=== PATIENT | male | born 1930 | race Caucasian/White ===

== ENCOUNTER 2017-10-24 03:09 | Emergency (ER) | payer MEDICARE ==
[~2017-10-24] VITALS: Ht 185.4 cm; Wt 87.1 kg
--- OUTSIDE RECORDS SUMMARY | ~2017-10-24 | XMS ---
Demographics + + + | Address | [address] | | | [place] [address] | + + + | Preferred Language | Unknown | + + + | Marital Status | Unknown | + + + | Taoist Affiliation | Unknown | + + + | Race | Unknown | + + + | Ethnic Group | Unknown | + + + Author + + + | Author | [facility] | + + + | Organization | [facility] | + + + | Address | [address] | | | [place] [address] | + + + | Phone | | + + + Care Team Providers + + + + | Care Crm Marketing Manager Name | Role | Phone | + + + + Unavailable | Unavailable | + + + + PROBLEMS +---------+ + + +--------+ + + | Type | Condition | ICD9-CM | [id number] | Onset | Condition | SNOMED | | | | Code | Code | Dates | Status | Code | +---------+ + + +--------+ + + | Problem | Essential | | I10 | | Active | [id number] | | | hypertensi | | | | | | | | on | | | | | | +---------+ + + +--------+ + + | Problem | Vascular | | F01.50 | | Active | 59701643 | | | dementia | | | | | | | | without | | | | | | | | behavioral | | | | | | | | | | | | | | | | disturbanc | | | | | | | | e | | | | | | +---------+ + + +--------+ + + | 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 | 63793564 | | | amine | | | | | | | | deficiency | | | | | | | | (non | | | | | | | | anemic) | | | | | | +---------+ + + +--------+ + + | Problem | Depression | | F32.9 | | Active | 373340050 | +---------+ + + +--------+ + + | Problem | Hyperchole | | E78.0 | | Active | 18221514 | | | sterolemia | | | | | | +---------+ + + +--------+ + + | Problem | Chronic | | Z79.01 | | Active | 317037209 | | | anticoagul | | | | | | | | ation | | | | | | +---------+ + + +--------+ + + | 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 | | Active | 025338499 | | | hyperlipid | | | | | | | | emia | | | | | | +---------+ + + +--------+ + + | Problem | 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 | | Active | 58741177 | | | a | | | | | | +---------+ + + +--------+ + + | Problem | Chronic | | I48.2 | | Active | 320620462 | | | atrial | | | | | | | | fibrillati | | | | | | | | on | | | | | | +---------+ + + +--------+ + + | Problem | Dysthymia | F34.1 | | | Active | 56856572 | +---------+ + + +--------+ + + | Problem | Hypertensi | I11.9 | | | Active | 20345622 | | | ve | | | | | | | | arterioscl | | | | | | | | erotic | | | | | | | | cardiovasc | | | | | | | | ular | | | | | | | | disease | | | | | | +---------+ + + +--------+ + + ALLERGIES Unknown Allergies SOCIAL HISTORY No smoking Hx information available PLAN OF CARE VITAL SIGNS MEDICATIONS Unknown Medications RESULTS No Results PROCEDURES No Known procedures IMMUNIZATIONS No Known Immunizations"
--- OUTSIDE RECORDS SUMMARY | ~2017-10-24 | XMS | Clinical Summary ---
Demographics + + + | Address | [address] | | | [place] [address] | + + + | Home Phone | | + + + | Preferred Language | Unknown | + + + | Marital Status | | + + + | Adventist Affiliation | 1027 | + + + | Race | Unknown | + + + | Ethnic Group | Unknown | + + + Author + + + | Author | [facility] | + + + | Organization | [facility] | + + + | Address | Unknown | + + + | Phone | Unavailable | + + + Support + + + + + | Name | Relationship | Address | Phone | + + + + + | Nancy Tellez | ECON | [address] | | | | | [place] | | | | | [address] | | + + + + + | Tre Tellez | ECON | Unknown | | + + + + + Care Team Providers + +------+ + | Care Assembler Installer General Name | Role | Phone | + +------+ + | Hilton Cummins DO | PP | Unavailable | + +------+ + Allergies No Known Allergies Current Medications + + +--------+---------+------+------+-------+ | Prescription | Sig. | Disp. | Refills | Star | End | Statu | | | | | | t | Date | s | | | | | | Date | | | + + +--------+---------+------+------+-------+ | lisinopril | Take 40 mg by mouth | | | | | Activ | | (PRINIVIL,ZESTRIL) | daily. | | | | | e | | 40 MG tablet | | | | | | | + + +--------+---------+------+------+-------+ | aspirin 81 MG EC | Take 81 mg by mouth | | | | | Activ | | tablet | daily with | | | | | e | | | breakfast. | | | | | | + + +--------+---------+------+------+-------+ | atorvastatin | Take 80 mg by mouth | | | | | Activ | | (LIPITOR) 80 MG | nightly. | | | | | e | | tablet | | | | | | | + + +--------+---------+------+------+-------+ | FLUoxetine | Take 40 mg by mouth | | | | | Activ | | (PROZAC) 40 MG | daily. | | | | | e | | capsule | | | | | | | + + +--------+---------+------+------+-------+ | furosemide (LASIX) | Take 40 mg by mouth | | | | | Activ | | 40 MG tablet | daily. | | | | | e | + + +--------+---------+------+------+-------+ | amLODIPine | Take 5 mg by mouth | | | | | Activ | | (NORVASC) 5 MG | daily. | | | | | e | | tablet | | | | | | | + + +--------+---------+------+------+-------+ | Cholecalciferol | Take 2,000 Units by | | | | | Activ | | (VITAMIN D3) 2000 | mouth daily. | | | | | e | | UNITS capsule | | | | | | | + + +--------+---------+------+------+-------+ | folic acid | Take 400 mcg by | | | | | Activ | | (FOLVITE) 400 MCG | mouth daily. | | | | | e | | tablet | | | | | | | + + +--------+---------+------+------+-------+ | warfarin | Take 1 tablet by | 30 | 11 | 08/2 | 09/0 | Activ | | (COUMADIN) 5 MG | mouth daily. | tablet | | 0/20 | 20 | e | | tablet | | | | 14 | 21 | | + + +--------+---------+------+------+-------+ | cyanocobalamin | Take 500 mcg by | | | | | Activ | | (VITAMIN B-12) 500 | mouth daily. 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 | 10/09/2014 | + + + | CKD (chronic kidney disease), stage III | 11/06/2012 | + + + | HTN (hypertension) | 11/06/2012 | + + + | Nephrolithiasis | 11/06/2012 | + + + | BPH (benign prostatic hypertrophy) | 11/06/2012 | + + + | Vitamin D deficiency | 11/06/2012 | + + + | Anemia | 11/06/2012 | + + + | GERD (gastroesophageal reflux disease) | 11/06/2012 | + + + | Osteoporosis | 11/06/2012 | + + + | Gout | 11/06/2012 | + + + | Dyslipidemia | 11/06/2012 | + + + | CAD (coronary artery disease) | 11/06/2012 | + + + + + | Overview: S/P CABG x1 in ~1979; 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 | | 2003 | + + + +---+ | Hx of sinus bradycardia | | + +---+ | Mitral regurgitation | | + +---+ + + | Overview: mitral valve repair | + + + +---+ | Renal insufficiency | | + +---+ | Hyperlipidemia | | + +---+ Family History + + +------+ + | Medical History | Relation | Name | Comments | + + +------+ + | Heart Disease | Mother | | ACHD | + + +------+ + | Coronary Artery | Paternal | | | | Disease | Grandfath | | | | | er | | | + + +------+ + + +------+ + + | Relation | Name | Status | Comments | + +------+ + + | Father | | | | | | | (Age | | | | | 90) | | + +------+ + + | Mother | | | | | | | (Age | | | | | 84) | | + +------+ + + | Paternal Grandfather | | | | + +------+ + + Social History + +-------+ +--------+------+ | Tobacco Use | Types | Packs/Day | Years | Date | | | | | Used | | + +-------+ +--------+------+ | Never Smoker | | | | | + +-------+ +--------+------+ + +---+---+---+ | Smokeless Tobacco: | | | | | Never Used | | | | + +---+---+---+ + + +---------+ + | Alcohol Use | Drinks/We | oz/Week | Comments | | | ek | | | + + +---------+ + | No | | | | + + +---------+ + + + + | Sex Assigned at | Date Recorded | | | | + + + | Not on file | | + + + Last Filed Vital Signs + + + + | Vital Sign | Reading | Time Taken | + + + + | Blood Pressure | 118/70 | 01/22/2015 11:56 AM PST | + + + + | Pulse | 74 | 01/22/2015 11:56 AM PST | + + + + | Temperature | 36.6 C (97.9 F) | 04/09/2013 12:27 PM PST | + + + + | Respiratory Rate | 18 | 01/22/2015 11:56 AM PST | + + + + | Oxygen Saturation | 98% | 01/22/2015 11:56 AM PST | + + + + | Inhaled Oxygen | - | - | | Concentration | | | + + + + | Weight | 89.8 kg (198 lb) | 01/22/2015 11:56 AM PST | + + + + | Height | 185.4 cm (6' 1") | 01/22/2015 11:56 AM PST | + + + + | Body Mass Index | 26.12 | 01/22/2015 11:56 AM PST | + + + + Plan of Treatment + + + + + | Health Maintenance | Due Date | Last Done | Comments | + + + + + | Vaccine: | | | | | Dtap/Tdap/Td (1 - | 0 | | | | Tdap) | | | | + + + + + | Vaccine: Zoster (1 | | | | | of 2) | 1 | | | + + + + + | Vaccine: | | | | | Pneumococcal 65+ | 6 | | | | Low/Medium Risk (1 | | | | | of 2 - PCV13) | | | | + + + + + | Vaccine: Influenza | | | | | (#1) | 8 | | | + + + + + Results Not on filefrom Last 3 Months Insurance + +--------+ +------+-------+ + | Payer | Benefi | Subscriber | Type | Phone | Address | | | t Plan | ID | | | | | | / | | | | | | | Group | | | | | + +--------+ +------+-------+ + | MEDICARE | MEDICA | [id number] | | | [address] | | | RE | | | | [place] [id number] | | | IP-OP | | | | | + +--------+ +------+-------+ + + +--------+ +--------+ + + | Guarantor Name | Accoun | Relation to | Date | Phone | Billing Address | | | t Type | Patient | of | | | | | | | | | | + +--------+ +--------+ + + | GEOFF TELLEZ | Person | Self [birth year] | Home: | [address] | | | al/Fam | | 1931 | [phone] | [place] | | | [place] | | | [phone] | [phone] | + +--------+ +--------+ + +
--- OUTSIDE RECORDS SUMMARY | ~2017-10-24 | XMS | Clinical Summary ---
Demographics + + + | Address | [address] | | | [place] [address] | + + + | Home Phone | | + + + | Preferred Language | Unknown | + + + | Marital Status | | + + + | Yazidi Affiliation | 1027 | + + + | Race | Unknown | + + + | Ethnic Group | Unknown | + + + Author + + + | Author | [facility] | + + + | Organization | [facility] | + + + | Address | Unknown | + + + | Phone | Unavailable | + + + Support + + + + + | Name | Relationship | Address | Phone | + + + + + | Nancy Tellez | ECON | [address] | | | | | [place] | | | | | [address] | | + + + + + | Tre Tellez | ECON | Unknown | | + + + + + Care Team Providers + +------+ + | Care Sow Farm Manager Name | Role | Phone | [...] | + + + | CAD in cataw[place] artery | 10/09/2014 | + + + [...] +------+-------+ + | MEDICARE | MEDICA | [id number] | | | [address] | | | RE | | | | [place] [id number] | | | IP-OP | | | [...] | Self | [birth year] | Home: | [address] | | | al/Fam | | 1931 | [phone] | [place] | | | [place] | | | [phone] | [phone] | + +--------+ +--------+ + +
--- OUTSIDE RECORDS SUMMARY | ~2017-10-24 | XMS ---
Demographics + + + | Address | [address] | | | [place] [address] | + + + | Preferred Language | Unknown | + + + | Marital Status | Unknown | + + + | Temple Affiliation | Unknown | + + + | Race | Unknown | + + + | Ethnic Group | Unknown | + + + Author + + + | Author | [facility] | + + + | Organization | [facility] | + + + | Address | [address] | | | [place] [address] | + + + | Phone | | + + + Care Team Providers + + + + | Care Paper Coater Name | Role | Phone | + + + + Unavailable | Unavailable | + + + + PROBLEMS + + + + + + + + | Type | Condition | ICD9-CM | [id number] | Onset | Condition | SNOMED | | | | Code | Code | Dates | Status | Code | + + + + + + + + | Problem | Essential | | I10 | | Active | [id number] | | | hypertensi | | | | | | | | on | | | | | | + + + + + + + + | Problem | Vascular | | F01.50 | | Active | 01629326 | | | dementia | | | | | | | | without | | | | | | | | behavioral | | | | | | | | | | | | | | | | disturbanc | | | | | | | | e | | | | | | + + + + + + + + | 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 | 77007642 | | | amine | | | | | | | | deficiency | | | | | | | | (non | | | | | | | | anemic) | | | | | | + + + + + + + + | Problem | Chronic | | Z79.01 | | Active | 705600893 | | | anticoagul | | | | | | | | ation | | | | | | + + + + + + + + | 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 | | Active | 039400266 | | | hyperlipid | | | | | | | | emia | | | | | | + + + + + + + + | Problem | 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 | | Active | 96897594 | | | a | | | | | | + + + + + + + + | Problem | Chronic | | I48.2 | | Active | 078373683 | | | atrial | | | | | | | | fibrillati | | | | | | | | on | | | | | | + + + + + + + + | Problem | Dysthymia | F34.1 | | | Active | 61372778 | + + + + + + + + | Problem | Hypertensi | I11.9 | | | Active | 52059545 | | | ve | | | | | | | | arterioscl | | | | | | | | erotic | | | | | | | | cardiovasc | | | | | | | | ular | | | | | | | | disease | | | | | | + + + + + + + + | Assessment | Vascular | | F01.50 | 22 June, | Active | 74447001 | | | dementia | | | 2016 | | | | | without | | | | | | | | behavioral | | | | | | | | | | | | | | | | disturbanc | | | | | | | | e | | | | | | + + + + + + + + | Assessment | Hemarthros | M25.00 | | 16 June, | Active | 18209658 | | | is | | | 2016 | | | + + + + + + + + | Problem | Depression | | F32.9 | | Active | 606183091 | + + + + + + + + | Assessment | Localized | | R60.0 | 16 June, | Active | 4451914 | | | edema | | | 2017 | | | + + + + + + + + | Problem | Hyperchole | | E78.0 | | Active | 00839272 | | | sterolemia | | | | | | + + + + + + + + ALLERGIES + + + + +--------+ | Substance | Reaction | Event Type | Date | Status | + + + + +--------+ | Metoprolol | bradycardia | Drug Allergy | June, | Active | | Succinate | | | | | + + + + +--------+ SOCIAL HISTORY No smoking Hx information available PLAN OF CARE VITAL SIGNS + + + + | Height | 73 in | 2016-06-22 | + + + + | Weight | 197.0 lbs | 2016-06-22 | + + + + | BMI | 25.99 kg/m2 | 2016-06-22 | + + + + | Heart Rate | 86 /min | 2016-06-22 | + + + + | Blood pressure systolic | 140 mm Hg | 2016-06-22 | + + + + | Blood pressure diastolic | 55 mm Hg | 2016-06-22 | + + + + MEDICATIONS + + + + +--------+ + +--------+ | Medicati | Instruct | Dosage | Frequenc | Start | End Date | Duration | Status | | on | ions | | y | Date | | | | + + + + +--------+ + +--------+ | Amlodipi | | TAKE ONE | | | | | Active | | ne | | TABLET | | | | | | | Besylate | | BY MOUTH | | | | | | | 5mg | | EVERY | | | | | | | | | DAY | | | | | | + + + + +--------+ + +--------+ | Vitamin | Orally | 1 tablet | 24h | | | | Active | | C 1000 | Once a | | | | | | | | MG | day | | | | | | | + + + + +--------+ + +--------+ | Vitamin | | | | | | | Active | | D3 2000 | | | | | | | | | UNIT | | | | | | | | + + + + +--------+ + +--------+ | Warfarin | Orally | 2.5 mg | 24h | | | 90 days | Active | | Sodium | Once a | mon,weds | | | | | | | 2.5 MG | day | ,fri. | | | | | | | | | 1/2 | | | | | | | | | tablet | | | | | | | | | all | | | | | | | | | other | | | | | | | | | days | | | | | | + + + + +--------+ + +--------+ | Aspir-81 | Orally | 1 tablet | 24h | | | | Active | | 81 MG | Once a | | | | | | | | | day | | | | | | | + + + + +--------+ + +--------+ | Vitamin | Sublingu | 1 tablet | 24h | | | | Active | | B-12 | al Once | under | | | | | | | 1000 MCG | a day | the | | | | | | | | | tongue | | | | | | | | | and | | | | | | | | | allow to | | | | | | | | | | | | | | | | | | dissolve | | | | | | + + + + +--------+ + +--------+ | Atorvast | | TAKE ONE | | | | | Active | | atin | | TABLET | | | | | | | Calcium | | BY MOUTH | | | | | | | 80mg | | EVERY | | | | | | | | | DAY | | | | | | + + + + +--------+ + +--------+ | Fluoxeti | Orally | TAKE ONE | 24h | | | | Active | | ne HCl | Once a | CAPSULE | | | | | | | 40mg | day | BY | | | | | | | | | MOUTH | | | | | | | | | EVERY | | | | | | | | | DAY | | | | | | + + + + +--------+ + +--------+ | Folic | Orally | 2 tablet | 24h | | | | Active | | Acid 400 | Once a | | | | | | | | MCG | day | | | | | | | + + + + +--------+ + +--------+ | Furosemi | | TAKE ONE | | | | | Active | | de 40mg | | TABLET | | | | | | | | | BY MOUTH | | | | | | | | | EVERY | | | | | | | | | DAY | | | | | | + + + + +--------+ + +--------+ | Lisinopr | Orally | 1 tablet | 24h | | | | Active | | il 40mg | Once a | | | | | | | | | day | | | | | | | + + + + +--------+ + +--------+ RESULTS No Results PROCEDURES + + + + + | Procedure | Date Ordered | Related Diagnosis | Body Site | + + + + + | Moderate | June 22, 2016 | | | + + + + + IMMUNIZATIONS No Known Immunizations"
--- OUTSIDE RECORDS SUMMARY | ~2017-10-24 | XMS ---
Demographics + + + | Address | [address] | | | [place] [address] | + + + | Preferred Language | Unknown | + + + | Marital Status | Unknown | + + + | Yarsanism Affiliation | Unknown | + + + | Race | Unknown | + + + | Ethnic Group | Unknown | + + + Author + + + | Author | [facility] | + + + | Organization | [facility] | + + + | Address | [address] | | | [place] [address] | + + + | Phone | | + + + Care Team Providers + + + + | Care Elementary Education Tutor Name | Role | Phone | + + + + Unavailable | Unavailable | + + + + PROBLEMS +---------+ + + +--------+ + + | Type | Condition | ICD9-CM | [id number] | Onset | Condition | SNOMED | | | | Code | Code | Dates | Status | Code | +---------+ + + +--------+ + + | Problem | Essential | | I10 | | Active | 95918637 | | | hypertensi | | | | | | | | on | | | | | | +---------+ + + +--------+ + + | Problem | Vascular | | F01.50 | | Active | 88113733 | | | dementia | | | [...] | E53.8 | | | Active | 71002066 | | | amine | | | | | | | | deficiency | | | | | | | | (non | | | | | | | | anemic) | | | | | | +---------+ + + +--------+ + + | Problem | Depression | | F32.9 | | Active | 249215394 | +---------+ + + +--------+ + + | Problem | Hyperchole | | E78.0 | | Active | 82771330 | | | sterolemia | | | | | | +---------+ + + +--------+ + + | Problem | Chronic | | Z79.01 | | Active | 456248838 | | | anticoagul | | | | | | | | ation | | | | | | +---------+ + + +--------+ + + | 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 | | Active | 429385238 | | | hyperlipid | | | | | | | | emia | | | | | | +---------+ + + +--------+ + + | Problem | 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 | | Active | 19685620 | | | a | | | | | | +---------+ + + +--------+ + + | Problem | Chronic | | I48.2 | | Active | 915709932 | | | atrial | | | | | | | | fibrillati | | | | | | | | on | | | | | | +---------+ + + +--------+ + + | Problem | Dysthymia | F34.1 | | | Active | 46879134 | +---------+ + + +--------+ + + | Problem | Hypertensi | I11.9 | | | Active | 31609662 | | | ve | | | | | | | | arterioscl | | | | | | | | erotic | | | | | | | | cardiovasc | | | | | | | | ular | | | | | | | | disease | | | | | | +---------+ + + +--------+ + + ALLERGIES + + + + +--------+ | Substance | Reaction | Event Type | Date | Status | + + + + +--------+ | Metoprolol | bradycardia | Drug Allergy | 15 Sep, 2016 | Active | | Succinate | | | | | + + + + +--------+ SOCIAL HISTORY No smoking Hx information available PLAN OF CARE + +---------+ | Activity | Details | + +---------+ +---+ | | +---+ + + + | Follow Up | 6 Months Reason:null | + + + VITAL SIGNS + + + + | Height | 73 in | 2016-09-21 | + + + + | Weight | 198.6 lbs | 2016-09-21 | + + + + | BMI | 26.20 kg/m2 | 2016-09-21 | + + + + | Temperature | 97.9 degrees Fahrenheit | 2016-09-21 | + + + + | Heart Rate | 64 /min | 2016-09-21 | + + + + | Blood pressure systolic | 146 mm Hg | 2016-09-21 | + + + + | Blood pressure diastolic | 53 mm Hg | 2016-09-21 | + + + + MEDICATIONS + [...] | + + + + + | Office Visit, Est | Sep 21, 2016 | | | | Pt., Level 4 | | | | + + + + + IMMUNIZATIONS No Known Immunizations"
--- OUTSIDE RECORDS SUMMARY | ~2017-10-24 | XMS ---
Demographics + + + | Address | [address] | | | [place] [address] | + + + | Preferred Language | Unknown | + + + | Marital Status | Unknown | + + + | Church Affiliation | Unknown | + + + | Race | Unknown | + + + | Ethnic Group | Unknown | + + + Author + + + | Author | [facility] | + + + | Organization | [facility] | + + + | Address | [address] | | | [place] [address] | + + + | Phone | | + + + Care Team Providers + + + + | Care Business Office Representative Name | Role | Phone | + + + + Unavailable | Unavailable | + + + + PROBLEMS +---------+ + + +--------+ + + | Type | Condition | ICD9-CM | [id number] | Onset | Condition | SNOMED | | | | Code | Code | Dates | Status | Code | +---------+ + + +--------+ + + | Problem | Essential | | I10 | | Active | [id number] | | | hypertensi | | | | | | | | on | | | | | | +---------+ + + +--------+ + + | Problem | Vascular | | F01.50 | | Active | 19089470 | | | dementia | | | [...] | E53.8 | | | Active | 29553997 | | | amine | | | | | | | | deficiency | | | | | | | | (non | | | | | | | | anemic) | | | | | | +---------+ + + +--------+ + + | Problem | Depression | | F32.9 | | Active | 077512156 | +---------+ + + +--------+ + + | Problem | Hyperchole | | E78.0 | | Active | 65539044 | | | sterolemia | | | | | | +---------+ + + +--------+ + + | Problem | Chronic | | Z79.01 | | Active | 891130555 | | | anticoagul | | | | | | | | ation | | | | | | +---------+ + + +--------+ + + | 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
--- OUTSIDE RECORDS SUMMARY | ~2017-10-24 | XMS ---
Demographics + + + | Address | [address] | | | [place] [address] | + + + | Preferred Language | Unknown | + + + | Marital Status | Unknown | + + + | Synagogue Affiliation | Unknown | + + + | Race | Unknown | + + + | Ethnic Group | Unknown | + + + Author + + + | Author | [facility] | + + + | Organization | [facility] | + + + | Address | [address] | | | [place] [address] | + + + | Phone | | + + + Care Team Providers + + + + | Care Manager Media Relations Name | Role | Phone | + + + + Unavailable | Unavailable | + + + + PROBLEMS +---------+ + + +--------+ + + | Type | Condition | ICD9-CM | [id number] | Onset | Condition | SNOMED | | | | Code | Code | Dates | Status | Code | +---------+ + + +--------+ + + | Problem | Essential | | I10 | | Active | 45635629 | | | hypertensi | | | | | | | | on | | | | | | +---------+ + + +--------+ + + | Problem | Vascular | | F01.50 | | Active | [id number] | | | dementia | | | | | 7926025 | | | without | | | | | | | | behavioral | | | | | | | | | | | | | | | | disturbanc | | | | | | | | e | | | | | | +---------+ + + +--------+ + + | 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 | | | | | | | | (non | | | | | | | | anemic) | | | | | | +---------+ + + +--------+ + + | Problem | Depression | | F32.9 | | Active | 48492196 | +---------+ + + +--------+ + + | Problem | Hyperchole | | E78.0 | | Active | 96435567 | | | sterolemia | | | | | | +---------+ + + +--------+ + + | Problem | Chronic | | Z79.01 | | Active | 699025188 | | | anticoagul | | | | | | | | ation | | | | | | +---------+ + + +--------+ + + | 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 | | Active | 641172129 | | | hyperlipid | | | | | | | | emia | | | | | | +---------+ + + +--------+ + + | Problem | 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 | | Active | 02472369 | | | a | | | | | | +---------+ + + +--------+ + + | Problem | Chronic | | I48.2 | | Active | 695690182 | | | atrial | | | | | | | | fibrillati | | | | | | | | on | | | | | | +---------+ + + +--------+ + + | Problem | Dysthymia | F34.1 | | | Active | 94023507 | +---------+ + + +--------+ + + | Problem | Hypertensi | I11.9 | | | Active | 11512513 | | | ve | | | | | | | | arterioscl | | | | | | | | erotic | | | | | | | | cardiovasc | | | | | | | | ular | | | | | | | | disease | | | | | | +---------+ + + +--------+ + + ALLERGIES No Information SOCIAL HISTORY Never Assessed PLAN OF CARE VITAL SIGNS MEDICATIONS Unknown Medications RESULTS No Results PROCEDURES No Known procedures IMMUNIZATIONS No Known Immunizations MEDICAL (GENERAL) HISTORY + + + + | Type | Description | Date | + + + + | Medical History | Arthritis | | + + + + | Medical History | Hypertension | | + + + + | Medical History | Chronic Kidney Disease | | | | stage III Bun/Cr 28/02. | | | | GFR 33 09/14/12 | | + + + + | Medical History | BPH | | + + + + | Medical History | GERD | | + + + + | Medical History | Osteoporosis ( alendronate | | | | started 07/17/12) | | + + + + | Medical History | Depression | | + + + + | Medical History | Gout | | + + + + | Medical History | Vitamin D deficiency | | + + + + | Medical History | Hypercholestrol | | + + + + | Medical History | Peripheral Vascular disease | | + + + + | Medical History | CAD | | + + + + | Medical History | hx/o asymptomatic | | | | bradycardia | | + + + + | Medical History | Anemia H&H .2 09/14/12 | | + + + + | Medical History | Hearing Loss b/l | | + + + + | Medical History | Cognitive Impairment | | | | starting 2012 | | + + + + | Medical History | Atrial Fibrillation started | | | | on coumadin 09/26/13 | | + + + + | Medical History | Estimated dietary calcium | | | | intake 500mg/day 07/17/12 | | + + + + | Medical History | FRAX calculation performed | | | | assessing 10 year | | | | probability of fracture. | | | | 12% risk of major | | | | osteoporotic fx, 5.4% risk | | | | of hip fx. 07/17/12 | | + + + + | Medical History | Patient education packet on | | | | fall prevention and home | | | | safety questionnaire | | | | provided. 07/17/12 | | + + + + | Medical History | MMSE score /02/20/14 | | + + + + | Surgical History | Silk Screen Printer Helper Dr Chan | | | | yearly visits | | + + + + | Surgical History | Internal Medicine Dr Rea | | | | Bren Zheng 05/2012 | | + + + + | Surgical History | Mitral Valve repair | 2003 | + + + + | Surgical History | cataract surgery L | | + + + + | Surgical History | CABG x 2 without [facility] | 2003 | + + + + | Surgical History | knee surgery | | + + + + | Surgical History | Colonoscopy x 3 | 2007 | + + + + | Surgical History | DEXA femorral T-score -2.3 | 2010 | + + + + | Surgical History | 2D Echo - aluis with very | 07/06/13 | | | slow ventricular response, | | | | EF 60%, unable to assess | | | | diastolic fxn. | | + + + + | Hospitalization History | [facility] re: dizziness | 01/15/15 | + + + + | Hospitalization History | [facility] re: ARF | 05/29-06/02/16 | + + + + | Hospitalization History | [facility] re: acute b/l | 06/02-06/08/16 | | | hemarthrosis with | | | | deconditioning and | | | | difficulty in ambulation | | + + + +"
--- OUTSIDE RECORDS SUMMARY | ~2017-10-24 | XMS ---
Demographics + + + | Address | [address] | | | [place] [address] | + + + | Preferred Language | Unknown | + + + | Marital Status | Unknown | + + + | Amish Affiliation | Unknown | + + + | Race | Unknown | + + + | Ethnic Group | Unknown | + + + Author + + + | Author | [facility] | + + + | Organization | [facility] | + + + | Address | [address] | | | [place] [address] | + + + | Phone | | + + + Care Team Providers + + + + | Care Leasing Manager Name | Role | Phone | + + + + Unavailable | Unavailable | + + + + PROBLEMS +---------+ + + +--------+ + + | Type | Condition | ICD9-CM | [id number] | Onset | Condition | SNOMED | | | | Code | Code | Dates | Status | Code | +---------+ + + +--------+ + + | Problem | Essential | | I10 | | Active | 64563970 | | | hypertensi | | | | | | | | on | | | | | | +---------+ + + +--------+ + + | Problem | Vascular | | F01.50 | | Active | 72641149 | | | dementia | | | [...] | E53.8 | | | Active | 89906971 | | | amine | | | | | | | | deficiency | | | | | | | | (non | | | | | | | | anemic) | | | | | | +---------+ + + +--------+ + + | Problem | Depression | | F32.9 | | Active | 096527382 | +---------+ + + +--------+ + + | Problem | Hyperchole | | E78.0 | | Active | 12592450 | | | sterolemia | | | | | | +---------+ + + +--------+ + + | Problem | Chronic | | Z79.01 | | Active | 249624772 | | | anticoagul | | | | | | | | ation | | | | | | +---------+ + + +--------+ + + | 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
--- OUTSIDE RECORDS SUMMARY | ~2017-10-24 | XMS ---
Demographics + + + | Address | [address] | | | [place] [address] | + + + | Preferred Language | Unknown | + + + | Marital Status | Unknown | + + + | Islam Affiliation | Unknown | + + + | Race | Unknown | + + + | Ethnic Group | Unknown | + + + Author + + + | Author | [facility] | + + + | Organization | [facility] | + + + | Address | [address] | | | [place] [address] | + + + | Phone | | + + + Care Team Providers + + + + | Care Missing Persons Investigator Name | Role | Phone | + + + + Unavailable | Unavailable | + + + + PROBLEMS +---------+ + + +--------+ + + | Type | Condition | ICD9-CM | [id number] | Onset | Condition | SNOMED | | | | Code | Code | Dates | Status | Code | +---------+ + + +--------+ + + | Problem | Essential | | I10 | | Active | 84539516 | | | hypertensi | | | | | | | | on | | | | | | +---------+ + + +--------+ + + | Problem | Vascular | | F01.50 | | Active | 56454951 | | | dementia | | | [...] | E53.8 | | | Active | 41991111 | | | amine | | | | | | | | deficiency | | | | | | | | (non | | | | | | | | anemic) | | | | | | +---------+ + + +--------+ + + | Problem | Depression | | F32.9 | | Active | 219194560 | +---------+ + + +--------+ + + | Problem | Hyperchole | | E78.0 | | Active | 75573112 | | | sterolemia | | | | | | +---------+ + + +--------+ + + | Problem | Chronic | | Z79.01 | | Active | 923781857 | | | anticoagul | | | | | | | | ation | | | | | | +---------+ + + +--------+ + + | 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
--- OUTSIDE RECORDS SUMMARY | ~2017-10-24 | XMS ---
Demographics + + + | Address | [address] | | | [place] [address] | + + + | Preferred Language | Unknown | + + + | Marital Status | Unknown | + + + | Zoroastrianism Affiliation | Unknown | + + + | Race | Unknown | + + + | Ethnic Group | Unknown | + + + Author + + + | Author | [facility] | + + + | Organization | [facility] | + + + | Address | [address] | | | [place] [address] | + + + | Phone | | + + + Care Team Providers + + + + | Care Career Information Specialist Name | Role | Phone | + + + + Unavailable | Unavailable | + + + + PROBLEMS + + + + + + + + | Type | Condition | ICD9-CM | [id number] | Onset | Condition | SNOMED | | | | Code | Code | Dates | Status | Code | + + + + + + + + | Problem | Essential | | I10 | | Active | 56738859 | | | hypertensi | | | | | | | | on | | | | | | + + + + + + + + | Problem | Vascular | | F01.50 | | Active | 63961897 | | | dementia | | | [...] | E53.8 | | | Active | 61331745 | | | amine | | | | | | | | deficiency | | | | | | | | (non | | | | | | | | anemic) | | | | | | + + + + + + + + | Assessment | Contusion | | S80.01XD | 20 Apr, | Active | [id number] | | | of right | | | 2017 | | 5563272 | | | knee, | | | | | | | | subsequent | | | | | | | | encounter | | | | | | + + + + + + + + | Problem | Depression | | F32.9 | | Active | 085162448 | + + + + + + + + | Problem | Hyperchole | | E78.0 | | Active | 46110520 | | | sterolemia | | | | | | + + + + + + + + | Problem | Chronic | | Z79.01 | | Active | 693708953 | | | anticoagul | | | | | | | | ation | | | | | | + + + + + + + + | 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 | | Active | 268634528 | | | hyperlipid | | | | | | | | emia | | | | | | + + + + + + + + | Problem | 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 | | Active | 81272545 | | | a | | | | | | + + + + + + + + | Problem | Chronic | | I48.2 | | Active | 256080057 | | | atrial | | | | | | | | fibrillati | | | | | | | | on | | | | | | + + + + + + + + | Problem | Dysthymia | F34.1 | | | Active | 01394288 | + + + + + + + + | Problem | Hypertensi | I11.9 | | | Active | 54500605 | | | ve | | | [...] Metoprolol | bradycardia | Drug Allergy | May, | Active | | Succinate | | | | | + + + + +--------+ SOCIAL HISTORY No smoking Hx information available PLAN OF CARE VITAL SIGNS + + + + | Height | 73 in | 2016-05-27 | + + + + | Weight | 197.0 lbs | 2016-05-27 | + + + + | BMI | 25.99 kg/m2 | 2016-05-27 | + + + + | Heart Rate | 95 /min | 2016-05-27 | + + + + | Blood pressure systolic | 141 mm Hg | 2016-05-27 | + + + + | Blood pressure diastolic | 55 mm Hg | 2016-05-27 | + + + + MEDICATIONS + + + + +--------+ + +--------+ | Medicati | Instruct | Dosage | Frequenc | Start | End Date | Duration | Status | | on | ions | | y | Date | | | | + + + + +--------+ + +--------+ | Atorvast | | TAKE ONE | | | | 90 | Active | | atin | | [...] | + + + + + | Est Level III | May 27, 2016 | | | | Intermediate | | | | + + + + + IMMUNIZATIONS No Known Immunizations"
--- OUTSIDE RECORDS SUMMARY | ~2017-10-24 | XMS ---
Demographics + + + | Address | [address] | | | [place] [address] | + + + | Preferred Language | Unknown | + + + | Marital Status | Unknown | + + + | Restoration Affiliation | Unknown | + + + | Race | Unknown | + + + | Ethnic Group | Unknown | + + + Author + + + | Author | [facility] | + + + | Organization | [facility] | + + + | Address | [address] | | | [place] [address] | + + + | Phone | | + + + Care Team Providers + + + + | Care Signal Circuit Designer Name | Role | Phone | + + + + Unavailable | Unavailable | + + + + PROBLEMS +---------+ + + +--------+ + + | Type | Condition | ICD9-CM | GKK60-MB | Onset | Condition | SNOMED | | | | Code | Code | Dates | Status | Code | +---------+ + + +--------+ + + | Problem | Essential | | I10 | | Active | 14161725 | | | hypertensi | | | | | | | | on | | | | | | +---------+ + + +--------+ + + | Problem | Vascular | | F01.50 | | Active | 70756937 | | | dementia | | | [...] | E53.8 | | | Active | 26885858 | | | amine | | | | | | | | deficiency | | | | | | | | (non | | | | | | | | anemic) | | | | | | +---------+ + + +--------+ + + | Problem | Depression | | F32.9 | | Active | 622735141 | +---------+ + + +--------+ + + | Problem | Hyperchole | | E78.0 | | Active | 84837845 | | | sterolemia | | | | | | +---------+ + + +--------+ + + | Problem | Chronic | | Z79.01 | | Active | 697894764 | | | anticoagul | | | | | | | | ation | | | | | | +---------+ + + +--------+ + + | 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
[~2017-10-24 03:09] MED LIST: AMLODIPINE BESYL5 MG PO; ASPIRIN EC81 MG PO; COUMADIN2.5 MG PO; FLUOXETINE HCL40 MG PO; FOLIC ACID0.4 MG; FOSAMAX70 MG PO; FUROSEMIDE40 MG PO; LIPITOR80 MG PO; LISINOPRIL40 MG PO; METOPROLOL SUCC25 MG; METOPROLOL SUCC50 MG PO; OXYCODONE HCL5 MG PO; VITAMIN D32000 UNIT PO; WARFARIN SODIU2.5 MG PO; WARFARIN SODIUM5 MG PO
--- NOTE | 2017-10-24 07:34 | EKG ---
[facility] [address] [place] [address] Signed Atrial fibrillation with slow ventricular response Septal infarct , age undetermined Abnormal ECG When compared with ECG of 26-MAY-2016 00:17, Previous ECG has undetermined rhythm, needs review Septal infarct is now present T wave inversion less evident in Anterolateral leads Confirmed by MINE TAYLOR MD ([id number]) on 10/24/2017 7:34:44 AM Electronically Signed By: MINE TAYLOR MD 10/24/17 0734 PATIENT NAME: GEOFF TELLEZ Electrocardiogram DATE OF : 30 PHYSICIAN: MINE TAYLOR MD REPORT #: [id number] REPORT IS CONFIDENTIAL AND NOT TO BE RELEASED WITHOUT AUTHORIZATION
== END 2017-10-24 06:49 | disposition home or self-care (01) ==
LOC: ED 03:09
DX: R53.1 Weakness (principal); F03.90 Unspecified dementia, unspecified severity, without behavioral disturbance, psychotic disturbance, mood disturbance, and anxiety; I10 Essential (primary) hypertension; Z79.899 Other long term (current) drug therapy; Z79.82 Long term (current) use of aspirin
CPT/HCPCS: 80053; 81001; 84484; 85025; 85610; 93005; 93010; 99284; J7030

== ENCOUNTER 2018-05-11 18:54 | Inpatient (IN) | payer MEDICARE ==
[~2018-05-11] VITALS: Ht 185.4 cm; Wt 90.1 kg
--- OUTSIDE RECORDS SUMMARY | ~2018-05-11 | XMS | Clinical Summary ---
Demographics + + + | Address | [address] | | | [place] [address] | + + + | Home Phone | | + + + | Preferred Language | Unknown | + + + | Marital Status | | + + + | Buddhism Affiliation | 1027 | + + + | Race | Unknown | + + + | Ethnic Group | Unknown | + + + Author + + + | Author | [facility] | + + + | Organization | [facility] | + + + | Address | Unknown | + + + | Phone | Unavailable | + + + Support + + + + + | Name | Relationship | Address | Phone | + + + + + | Nancy Tellez | ECON | [address] | | | | | [place] | | | | | [address] | | + + + + + | Tre Tellez | ECON | Unknown | | + + + + + Care Team Providers + +------+ + | Care First Front Ventilator Name | Role | Phone | + [...] | + + + | CAD in [place] artery | 10/09/2014 | + + + [...] +------+-------+ + | MEDICARE | MEDICA | [id number] | | | [address] | | | RE | | | | [place] [address] | | | IP-OP | | | [...] | Self | [birth year] | Home: | [address] | | | al/Fam | | 1931 | [phone] | [place] | | | [place] | | | [phone] | [address] | + +--------+ +--------+ + +
--- OUTSIDE RECORDS SUMMARY | ~2018-05-11 | XMS | Clinical Summary ---
Demographics + + + | Address | [address] | | | [place] [address] | + + + | Home Phone | | + + + | Preferred Language | Unknown | + + + | Marital Status | | + + + | Holiness Affiliation | 1027 | + + + | Race | Unknown | + + + | Ethnic Group | Unknown | + + + Author + + + | Author | [facility] | + + + | Organization | [facility] | + + + | Address | Unknown | + + + | Phone | Unavailable | + + + Support + + + + + | Name | Relationship | Address | Phone | + + + + + | Nancy Tellez | ECON | [address] | | | | | [place] | | | | | [address] | | + + + + + | Tre Tellez | ECON | Unknown | | + + + + + Care Team Providers + +------+ + | Care Telegraph Printer Mechanic Name | Role | Phone | + [...] | + + + | CAD in [place] artery | 10/09/2014 | + + + [...] +------+-------+ + | MEDICARE | MEDICA | [id number] | | | [address] | | | RE | | | | [place] [address] | | | IP-OP | | | [...] | Self | [birth year] | Home: | [address] | | | al/Fam | | 1931 | [phone] | [place] | | | [place] | | | [phone] | [address] | + +--------+ +--------+ + +
--- OUTSIDE RECORDS SUMMARY | ~2018-05-11 | XMS | Clinical Summary ---
Demographics + + + | Address | [address] | | | [place] [address] | + + + | Home Phone | | + + + | Preferred Language | Unknown | + + + | Marital Status | | + + + | Bahai Affiliation | 1027 | + + + | Race | Unknown | + + + | Ethnic Group | Unknown | + + + Author + + + | Author | [facility] | + + + | Organization | [email or web address] | + + + | Address | Unknown | + + + | Phone | Unavailable | + + + Support + + + + + | Name | Relationship | Address | Phone | + + + + + | Nancy Tellez | ECON | [address] | | | | | [place] | | | | | [address] | | + + + + + | Tre Tellez | ECON | Unknown | | + + + + + Care Team Providers + +------+ + | Care Chief Program Officer Name | Role | Phone | + [...] | + + + | CAD in [place] artery | 10/09/2014 | + + + [...] +------+-------+ + | MEDICARE | MEDICA | [id number] | | | [address] | | | RE | | | | [place] [address] | | | IP-OP | | | [...] | Self | [birth year] | Home: | [address] | | | al/Fam | | 1931 | [phone] | [place] | | | [place] | | | [phone] | [address] | + +--------+ +--------+ + +
[~2018-05-11 18:54] MED LIST changes: -FOLIC ACID0.4 MG; +FOLIC ACID0.4 MG PO
[2018-05-11] MEDS ORDERED: LOSARTAN POTAS100 MG PO (19:07)
--- NOTE | 2018-05-11 21:55 | NUR ---
Patient arrived to unit via stretcher with LYLA Waters from ED. Patient slid to bed with assistance from LYLA Waters and LYLA Hobbs. With minimal effort from patient during bed transfer, patient is tachypneic with RR >30, SpO2 >90% with 4L O2 via oxymask, reports feeling SOB. RT at bedside to evaluate patient. With rest and relaxation, patient remains tachypneic but states "my breathing feels okay." Patient able to answer admission questions without difficulty. Patient is disoriented to time, orinted to self, place and situation. HR and BP WNL, lungs have EXW throughout. BT active x4, denies N/V. 1+ pitting edema noted in BLE, patient states that minor swelling is normal for him in left leg after CABG. CMS intact, IV intact.
--- NOTE | 2018-05-11 22:27 | NUR ---
RT to room to complete breathing treatment due to continued EXW and tachpnea.
--- NOTE | 2018-05-11 23:00 | NUR ---
Patient placed on BiPAP.
--- NOTE | 2018-05-12 00:30 | NUR ---
Patient is restful with eyes closed, breathing is even and unlabored on BiPAP, SPO2 94% with 30% FiO2. Lungs are clear in left [place], right side of lungs are dim, patient states "my breathing feels much better." denies needs at this time. No acute changes from previous assessment, vitals WNL, IVF infusing per order. call light within reach.
--- NOTE | 2018-05-12 02:40 | NUR ---
Patient restful with eyes closed, breathing is even and unlabored on BiPAP, SpO2 30% FiO2. FLACC score 0, call light within reach, vitals WNL.
--- NOTE | 2018-05-12 04:10 | NUR ---
Updated Dr. Sanders that patient has not voided since arrival to unit, no new orders at this time.
--- NOTE | 2018-05-12 05:01 | NUR ---
Patient continues to be restful with BiPAP, states "my breathing still feels good." Denies needs at this time. No acute changes in assessment. Vitals WNL. Patient taken off of BiPAP per request, placed on 4L O2 via oxymask, SpO2 95%. Call light within reach, IVF infusing per order.
--- NOTE | 2018-05-12 05:50 | NUR ---
Patient placed back on BiPAP, SpO2 96%, breathing remains unlabored. Denies needs at this time. Call light within reach.
--- NOTE | 2018-05-12 07:27 | NUR ---
PHONE CALL RC'D FROM DR. RIVERA REQUESTING BLADDER SCAN. PT SCANNED AND 359 MLS NOTED IN BLADDER. PT DENIES NEED TO URINATE. PHONE CALL TO PROVIDER AND INFORMED OF RESULTS. ORDER RC'D FOR MERINO CATH, READ BACK AND VERIFIED.
--- NOTE | 2018-05-12 08:35 | NUR ---
MERINO CATHETER PLACED AT THIS TIME, PT TOLERATED WELL. DR RIVERA INTO SEE PT SENT URINE SAMPLE TO LAB, FAMILY INTO SEE PT AT THIS TIME, BKF ORDERED FOR PT.
--- NOTE | 2018-05-12 09:15 | NUR ---
RETURNED FROM OR AT THIS TIME. TWO PERSON TRANSFGER.
--- NOTE | 2018-05-12 11:01 | NUR ---
PT WOKED WITH PHYSICAL THERAP AND BECOME INCREASED SOB AND INCREASED WORK OF BREATHING. RT CALLED AND NEB TX STARTED. PT IS HAVING CONTRERAS IN COLOR URINE. FAMILY REMAINS AT THE BEDSIDE.
[2018-05-12] MEDS ORDERED: FLUOXETINE HCL20 MG PO (11:03)
--- NOTE | 2018-05-12 11:40 | NUR ---
PT HAD BEEN WORKING WITH PHYSICAL THEAPY AND HAD INCREASED WORK OF BREATHING RT NOTIFED AND NEB TX GIVEN
--- NOTE | 2018-05-12 11:54 | NUR ---
Waiting for patient's , Nancy, to return to reconcile medications
--- NOTE | 2018-05-12 13:26 | EKG ---
[facility] [address] [place] [address] \T\ T wave abnormality, consider lateral ischemia Abnormal ECG When compared with ECG of 24-OCT-2017 03:13, Vent. rate has increased BY 41 BPM Criteria for Septal infarct are no longer present Confirmed by ANNEMARIE RIVERA DO ([id number]) on 05/12/2018 1:26:19 PM Electronically Signed By: ANNEMARIE RIVERA DO 05/12/18 1326 PATIENT NAME: GEOFF TELLEZ Electrocardiogram DATE OF : 30 PHYSICIAN: ANNEMARIE RIVERA DO REPORT #: [id number] REPORT IS CONFIDENTIAL AND NOT TO BE RELEASED WITHOUT AUTHORIZATION
--- NOTE | 2018-05-12 13:50 | NUR ---
ASSISTED PHYSICAL THERAPY WITH WALKING PT IN THE HALLWAY. PT ABLE TO WALK ABOUT 45 FEET IN THE [place] BEFORE NEEDING TO SIT DOWN. PT MAINTAINED O2 SATS AT 95 % ON OXYGEN, HOWEVER HAD SIGNIFICANT INCREASED WORK OF BREATHING. PT REQUESTED NOT TO APPLY BIPAP AT THIS TIME. PTS PRIMARY NURSE NOTIFIED.
--- NOTE | 2018-05-12 15:24 | NUR ---
IV FLUIDS DECREASED TO 75MLS/HR AT 15:[address] RIVERA ORDERS.
--- NOTE | 2018-05-12 18:28 | NUR ---
PT HAS ATE WELL TODAY, PT IS ABLE TO FEED SELF AND TOLERATE FOOD. FAMILY HAS BEEN AT THE BEDSIDE AND ALL QUESTIONS ANSWERED.
--- NOTE | 2018-05-12 19:37 | NUR ---
Patient sitting up in bed reading book, breathing is even and unlabored, denies feeling SOB. SpO2 95% on 2L NC. Denies needs at this time. Licea in place, draining bloody urine. IVF infusing per order, IV site intact. Call light within reach.
--- NOTE | 2018-05-12 20:50 | NUR ---
Patient assessment done, EXW heard throughout all lung rich[place], patient denies feeling SOB, patient's breathing is even and unlabored, SpO2 95% on 2L O2 NC. Patient repositioned in bed, EXW improved. RT to room to place patient on BiPAP. Patient disoriented to time, aware of person and surroundings, HR and BP WNL, peripheral pulses well felt in all extremities, 1+ pitting edema noted in BLE. Bowel tones active, denies nausea, reports that distention is normal for him. Licea present, oliguria noted with eloisa blood and small blood clots. Multiple bruises noted scattered across body. IV sites intact, LR infusing at 200 cc/hr per order. Denies pain at this time. Call light within reach.
--- NOTE | 2018-05-12 21:00 | NUR ---
Notified Dr. Orellana that patient continues to have oliguria with eloisa blood in hayes. Per Dr. Orellana, patient to remain on 200 cc/hr LR and continue to monitor output. Also received order to flush hayes, hayes flushed with 30 cc sterile NS, hayes not occluded. Patient restful, vitals WNL, denies needs at this time. IV site patent, IVF infusing per order. Call light within reach.
--- NOTE | 2018-05-12 22:15 | NUR ---
Patient restful with eyes closed, vitals WNL, on BiPAP. Licea continues to drain urine with eloisa blood. IVF infusing per order. call light within reach.
--- NOTE | 2018-05-12 23:00 | NUR ---
Patient remains restfuls with BiPAP, vitals WNL. Urine output increasing, remains oliguric however, eloisa blood no longer noted in urine, blood-streaked urine now. FLACC score 0. call light within reach.
--- NOTE | 2018-05-13 00:18 | NUR ---
Assessment done, no acute changes from previous assessment, urine output QS for 0000, minimal blood noted in urine now. Patient denies needs, denies pain. EXW still noted throughout lung [place]. Remains on BiPAP, SpO2 96% with 30% FiO2, IVF infusing per order. call light within reach.
--- NOTE | 2018-05-13 02:00 | NUR ---
Restful with BiPAP, vitals WNL, FLACC 0, hayes draining blood-tinged urine, no eloisa blood noted. Call light within reach, IVF infusing per order.
--- NOTE | 2018-05-13 04:00 | NUR ---
Patient resting comfortably, vitals WNL, remains on BiPAP, hayes draining concentrated urine, no eloisa blood noted. Call light within reach, IVF infusing.
--- NOTE | 2018-05-13 06:17 | NUR ---
Patient restful with eyes closed, denies needs at this time, denies pain. Assessment done, no acute changes from previous assessments, lungs are clear while on BiPAP, EXW when BiPAP is off, patient denies feeling SOB, no apparent respiratory distress. Licea continues to put out concentrated urine, no apparent blood. Call light within reach.
--- NOTE | 2018-05-13 07:48 | NUR ---
PT ASLEEP ON BIPIP (30% FIO2) AT THIS TIME. NO SIGNS OF DISCOMFORT. CALL LIGHT WITHIN REACH AND WILL RETURN SOON FOR ASSESSMENT.
--- NOTE | 2018-05-13 08:15 | NUR ---
PT SITTING UP IN BED AT THIS TIME ON 2 L/MIN O2 VIA NC- RT HAS PLACED HIM ON THIS AFTER SPENDING HIS NIGHT ON BIPAP. ASSESSMENT COMPLETED. PT VERY PLEASANT, CALM AND COOPERATIVE WITH NO C/O PAIN, N/V OR SOB. HE STATES HIS "BREATHING FEELS BETTER." LUNGS ARE VERY COURSE WITH EXPIRATORY WHEEZING IN ALL LUNG LOBES. ENCOURAGED TO KEEP UP WITH HIS COUGHING AND DEEP BREATHING. PT HAS A FREQUENT, HARSH COUGH BUT HE STATES "NOTHING IS COMING UP" IN REGARDS TO ANY SPUTUM. AFIB ON CONTINUOUS TELE; IRREGULAR HEART RATE. PT A/O X3; AVOIDED ANSWERING MY QUESTIONS TO THE DATE. BILATERAL FEET SHOW TRACE EDEMA; NO PITTING. MERINO IN PLACE DRAINING LIGHT YELLOW URINE- WILL CONTINUE TO MONITOR CLOSELY HE'S BEEN OLIGURIC. CONTINUOUS LR RUNNING INTO RIGHT AC PIV WITHOUT ISSUE; LEFT ARM PIV SL. EDUCATION COMPLETED WITH PT- ASKS APPROPRIATE QUESTIONS AND ANSWERS GIVEN. PT REFUSES TO GET UP TO RECLINER AT THIS TIME BUT STATES HE WILL "IN A LITTLE WHILE." BREAKFAST HAS ARRIVED AND PT DENIES ANY NEEDS AT THIS TIME. CALL LIGHT WITHIN REACH. WILL CONTINUE TO MONITOR.
--- NOTE | 2018-05-13 09:05 | NUR ---
PT ASSISTED UP TO HIS RECLINER AT THIS TIME. X1 PA/STAND BY ASSISTANCE. PT DENIES ANY DIZZINESS/FAINTNESS BUT STATES HE "FEELS WEAK" WHEN UP ON HIS FEET. WALKER USED FOR THE FEW STEPS TO THE CHAIR. EDUCATION GIVEN ON IMPORTANCE OF BEING OUT OF BED FOR LUNG EXPANSION. PT HAD SOME TACHYPNEA AND COUGHING WITH HIS AMBULATION TO CHAIR. AUDIBLY WHEEZY ON EXPIRATION. DENIES ANY NEEDS AT THIS TIME. HIS AND ANOTHER FAMILY MEMBER HAS JUST ARRIVED TO VISIT. CALL LIGHT WITHIN REACH. WILL CONTINUE TO MONITOR.
--- NOTE | 2018-05-13 11:15 | NUR ---
PT HAS FINISHED WORKING WITH PT IN HALLWAY- O2 SATS REMAINED >93% ON 2 L/MIN O2 VIA NC DURING AMBULATION. PT THEN HAD A BM IN TOILET. X1 PERSON ASSIST WITH HIS WALKER BACK TO RECLINER. FAMILY REMAINS AT HIS SIDE. DENIES ANY NEEDS. CALL LIGHT WITHIN REACH. WILL CONTINUE TO MONITOR.
--- NOTE | 2018-05-13 11:25 | NUR ---
PT'S MERINO CATH REMOVED WITHOUT ANY COMPLICATION AT THIS TIME. PT'S RIGHT IV ALSO SALINE LOCKED AT THIS TIME. BOTH OF THESE DONE PER MD'S ORDER. ORTHOSTATICS COMPLETED AND ARE NEGATIVE. PT IN RECLINER. DENIES ANY NEEDS. CALL LIGHT WITHIN REACH. WILL CONTINUE TO MONITOR.
--- NOTE | 2018-05-13 11:40 | NUR ---
PT ASSISTED TO TOILET PER HIS REQUEST. PT HAD ANOTHER BM AND NOW BACK IN RECLINER. TESTED PT WITH AMBULATION WITHOUT O2 AND HE DROPPED TO 86% WHEN ON ROOM AIR. PLACED BACK ON 2 L/MIN O2 AND HE IMMEDIATELY WENT UP TO 96%. CALL LIGHT WITHIN REACH. WILL CONTINUE TO MONITOR. PT AWARE OF HIS PLAN TO TRANSFER TO M/S UNIT TODAY. WILL BE TRANSFERING HIM SHORTLY.
--- NOTE | 2018-05-13 12:21 | NUR ---
PT REMAINS UP IN CHAIR. ASSESSMENT COMPLETED. NO CHANGES EXCEPT LUNGS SOUND MUCH BETTER SINCE PT HAS BEEN UP OUT OF BED WELL HIS MEDICAL TREATMENT THROUGHOUT THE MORNING. PT CONTINUES TO DENY PAIN, N/V OR SOB. WILL BE TRANSFERRING TO ROOM 124 SHORTLY.
--- NOTE | 2018-05-13 12:55 | NUR ---
REPORT GIVEN TO RECEIVING LYLA BOLTON; PT TRANSFERED WITH ALL BELONGINGS AND FAMILY AT HIS SIDE TO ROOM 124 ON M/S UNIT AT 1255. TRANSFER COMPLETE.
--- NOTE | 2018-05-13 13:00 | NUR ---
NEW ADMIT TO THE FLOOR. PT AWAKE, ALERT AND ORIENTED X3. PT DENIES SOB AND CHEST PAIN. PT HAS NOTABLE COUGH. RIGHT EYE RED, DR. CHRISTENSEN AWARE. PT IS ON 2L OXYGEN PER NC, RESP EVEN AND NON LABORED. VS TAKEN AND ARE STABLE. ORIENTED PT TO ROOM AND CALL LIGHT. PT TRANSITIONED TO BED, HE STATES HE WOULD LIKE TO TAKE A NAP. AT BEDSIDE. BED ALARM INTACT. INSTRUCTED PT TO USE CALL LIGHT WHEN NEEDING TO GET UP OUT OF BED. PERSONAL SUPPLIES AND CALL LIGHT WITHIN REACH. NO NEEDS.
--- NOTE | 2018-05-13 14:30 | NUR ---
PATIENT RESTING IN BED. VITAL SIGNS DONE. CALL LIGHT WITHIN REACH. NO OTHER NEEDS AT THIS TIME
--- NOTE | 2018-05-13 16:08 | NUR ---
PT STILL UNABLE TO VOID. BLADDER SCAN DONE; 154ML PER BEDSIDE SCANNER. PT DENIES SENSATION TO VOID. PT HAS BEEN TRENDING LOW URINE OUTPUT. WILL CONTINUE TO MONITOR PT.
--- NOTE | 2018-05-13 16:14 | NUR ---
PATIENT RESTING IN BED. PATIENT'S DINNER ORDERED. CALL LIGHT WITHIN REACH. NO OTHER NEEDS AT THIS TIME
--- NOTE | 2018-05-13 16:27 | NUR ---
Medications reconciled with pharmacy records and interview
--- NOTE | 2018-05-13 17:32 | NUR ---
PT SITTING UP IN BED EATING DINNER. CALL LIGHT AND H2O IN REACH. PT DENIES PAIN OR SOB ON 2LPNC. PT ALSO DENIES PAIN OR HAVING ANY NEEDS/CONCERNS.
--- NOTE | 2018-05-13 17:41 | NUR ---
PATIENT SITTING UP IN BED. PATIENT IS STILL FINISHING HIS DINNER. VITAL SIGNS AND I&O DONE. CALL LIGHT WITHIN REACH. NO OTHER NEEDS AT THIS TIME
--- NOTE | 2018-05-13 19:00 | NUR ---
PT STATES HE IS NOT THIRSTY AND HASN'T REALLY BEEN DRINKING BECAUSE HE DOESN'T FEEL THIRSTY. PT'S STATES THIS IS CHRONIC FOR PT. BLADDER SCAN SHOWS 128MLS. PT STATES HE HAS NO URGE TO VOID AND DOESNT WANT TO TRY. DR CHRISTENSEN NOTIFIED OF LOW URINE OUTPUT/INTAKE AND OF BLADDER SCAN RESULTS. NEW ORDER RECEIVED FOR 500ML LR BOLUS OVER 1HR AND THEN 75CC/HR CONTINUOUS. PT GIVEN SPRITE/CRANBERRY COCKTAIL AND APPEARS TO BE DRINKING IT. CALL LIGHT AND H20 IN REACH AND FAMILTY AT BEDSIDE.
--- NOTE | 2018-05-13 19:14 | NUR ---
IN ROOM FOR REPORT, PT IS AWAKE IN BED WITH AND SON IN THE ROOM. DAY RN IS STARTING HIS FLUID BOLUS AT THIS TIME. PT DENIES NEEDS AND CALL LIGHT IS CLOSE. BED ALARM IS ON.
--- NOTE | 2018-05-13 19:37 | NUR ---
PT CALLED TO USE URINAL. HE VOIDED 100MLS OF COLA COLORED URINE AND THERE WAS A DIME SIZE CLOT. PT DENIES FURTHER NEEDS AT THIS TIME. CALL LIGHT IS CLOSE AND BED ALARM IS ON.
--- NOTE | 2018-05-13 21:12 | NUR ---
IN ROOM TO ADMINISTER IV ABX AND ASSESS PT. HE DENIES PAIN AND SORTNESS OF BREATH. HE SOUNDS COARSE THROUGHOUT AND REPORTS YELLOW SPUTUM. ENCOURAGED PT TO COUGH AND DEEP BREATHE. Hilda. IS IN THE ROOM ADMINISTERING A NEB TRT AT THIS TIME. CALL LIGHT IS WITHIN REACH.
--- NOTE | 2018-05-13 21:39 | NUR ---
VITALS AND I&OS DONE AND CHARTED. DID BLADDER SCAN, PER REQUEST OF RN KALIN. BEDSIDE TABLE AND CALL LIGHT IN REACH. INFORMED RN KALIN RESULTS OF SCAN.
--- NOTE | 2018-05-13 22:45 | NUR ---
NOTIFIED DR CHRISTENSEN OF PT'S LOW URINE OUTPUT. TORBC NEW ORDERS PLACED.
--- NOTE | 2018-05-13 23:20 | NUR ---
HELPED PT ADJUST FACE MASK FOR BIPAP. PT DENIES NEEDS AT THIS TIME. CALL LIGHT IS WITHIN REACH
--- NOTE | 2018-05-14 01:21 | NUR ---
PT IS HAVING TROUBLE WITH THE FIT OF HIS BIPAP MASK CALLED R.T. TO TAKE A LOOK.
--- NOTE | 2018-05-14 02:44 | NUR ---
PT IS RESTING WITH EYES CLOSED, RR IS EVEN AND NONLABORED ON BIPAP. CALL LIGHT IS WITHIN REACH.
--- NOTE | 2018-05-14 03:47 | NUR ---
PT IS RESTING WITH EYES CLOSED, RESPIRATIONS ARE EVEN AND NONLABORED ON BIPAP. CALL LIGHT IS WITHIN REACH.
--- NOTE | 2018-05-14 05:10 | NUR ---
PT IS AWAKE IN BED AT THIS TIME WITH BIPAP ON. VS & I&O'S ENTERED. PT CONTINUES TO HAVE COLA COLORED URINE. IV FLUIDS ARE INFUSING AT 125MLS/HR. PT DENIES NEEDS AT THIS TIME.
--- NOTE | 2018-05-14 07:28 | NUR ---
PT RESTING SUPINE IN BED, EYES CLSOED AND RESPIRATIONS EVEN AND UNLABORED ON BIPAP. PT APPEARS TO BE SLEEPING COMFORTABLY. CALL LIGHT AND H20 IN REACH.
--- NOTE | 2018-05-14 08:39 | NUR ---
PT AWAKE AT THIS TIME, BIPAP REMOVED AND PT BACK ON NC, AM ASSESSMENT COMPLETED. BREAKFAST ORDERED. AM MEDS ADMINISTERED. CALL LIGHT AND H20 IN REACH. FAMILY AT BEDSIDE AND PT DENIES NEEDS/CONCERNS. FRESH ICE WATER IN REACH.
--- NOTE | 2018-05-14 13:12 | NUR ---
Pt sitting up in chair, ate approx 40% of his lunch and voids 100mls of dark cola colored urine. Pt assisted up to bed per his request. Call light and h2o in reach and pt denies furhter needs/concerns. Pt spoke at length about the book he is reading and about his childhood growing up in [place] during the war. Pt denies sob or pain. Rt agrees to come give scheduled neb tx soon. IV maintenance fluids infusing and cpox in place. o2 sat 92% on room air.
--- NOTE | 2018-05-14 13:16 | NUR ---
Pt resting supine in bed, eyes closed and respirations even and unlabored. IV abx infusing. Room air sat is 98%. Call light and WEB SUPPORT ENGINEER pump in reach. Pt appears to be sleeping comfortably.
--- NOTE | 2018-05-14 13:20 | NUR ---
PT'S CPOX BEEPING O2 SAT BETWEEN 88-90% ON ROOM AIR. .5LPNC O2 APPLIED AND O2 NOW AT 92%. PT DENIES SOB AND AGREES TO COUGH AND DEEP BREATH AND PUSH CALL LIGHT IF CPOX BEGINS TO BEEP. PT VERBALIZED UNDERSTANDING. CALL LIGHT AND H20 IN REACH. PT DENIES FURTHER NEEDS/CONCERNS.
--- NOTE | 2018-05-14 13:33 | NUR ---
PT RESTING IN BED. O2 SAT DOWN TO 85% ON ROOM AIR. WOKE PT TO TAKE DEEP BREATHS. O2 TURNED UP TO 2L/NC. SAT UP TO 90%.
--- NOTE | 2018-05-14 17:04 | NUR ---
PT RESTING IN BED, DINNER ARRIVED. PT ASSISTED UP TO CHAIR FOR DINNER. COUMADEN WAS ADMINISTERED. PT WAS HEAVY 1PA WITH FWW TO CHAIR. PT HAD SOME TACHYPNEA DURING TRANSFER BUT AFTER SITTING FOR A MOMENT PT'S RR NOW 18. O2 SAT 92% ON 2LPNC. PT DENIES SOB AND DINNER TRAY SET UP. PT APPEARS TO BE IN NO ACUTE DISTRESS. CALL LIGHT AND H2O IN REACH. FAMILY AT BEDSIDE.
--- NOTE | 2018-05-14 19:15 | NUR ---
ROUNDED CHARGE. PATIENT IS RESTING IN BED. PATIENT DENIES ANY COMMENTS, QUESTIONS OR CONCERNS. NO NEEDS NOTED. CALL LIGHT IN REACH.
--- NOTE | 2018-05-14 19:51 | NUR ---
REPORT RECEIVED, PT RESTING IN BEDSIDE CHAIR, MOVED TO BED PER PT'S REQUEST WITH 2 PERSON ASSIST, PT TOLERATED WELL, PT ON 2LNC, NO C/O SOB/CP, ON CPOX, O2 SAT 92%, HR 77, IV FLUIDS INFUSING PER EMAR WNL, NO REQUESTS AT THIS TIME, USE OF IS AND CDB ENCOURAGED, CALL LIGHT WITHIN REACH, FALL PRECAUTIONS IN PLACE.
--- NOTE | 2018-05-14 20:43 | NUR ---
VITALS DONE AND CHARTED. BEDSIDE TABLE AND CALL LIGHT IN REACH. PT NEEDS NOTHING MORE AT THIS TIME.
--- NOTE | 2018-05-14 21:04 | NUR ---
IN ROOM TO ADMIN EVENING MEDS, PT AOX4, APPROPRIATE, ASSESSMENT COMPLETE, PT ENCOURAGED TO C/D/B, OCCASIONAL NONPRODUCTIVE WET COUGH NOTED, PT ON 2LNC, DENIES SOB/CP, CPOX ON, O2 SAT 92-94%, PT ENCOURAGED TO USE IS, IV FLUIDS INFUSING PER EMAR WNL, NO REQEUSTS AT THIS TIME, CALL LIGHT WITHIN REACH. FALL PRECAUTIONS IN PLACE.
--- NOTE | 2018-05-14 23:34 | NUR ---
PT STATES THAT HE DOES NOT WANT TO WEAR THE BIPAP THIS EVENING, STATING "I CAN'T STAND IT" EDUCATION PROVIDED REGARDING THE BIPAP AND HIS BREATHING, PT REMAINS ON 2LNC, CPOX ON, O2 SAT 92-94%, NO C/O SOB/CP, PT CONTINUES TO REFUSE BIPAP, NO REQUESTS AT THIS TIME, IV FLUIDS INFUSING PER EMAR WNL, CALL LIGHT WITHIN REACH.
--- NOTE | 2018-05-15 02:45 | NUR ---
PT RESTING IN BED, NO REQUESTS AT THIS TIME, ON 2LNC, O2 SAT >92%, LS COURSE/DIMINISHED IN BILATERAL LOWER LOBES, PT CONTINUES TO HAVE WET COUGH, NO PRODUCTIVITY NOTED, PT DENIES SOB/CP, CONTINUES TO REFUSE BIPAP, CALL LIGHT WITHIN REACH, IV FLUIDS INFUSING PER EMAR WNL.
--- NOTE | 2018-05-15 03:08 | NUR ---
PT NOTED TO DESATURATE WHILE SLEEPING, PT DENIES SOB/CP, PT ON BIPAP NOW, TOLERATING IT REASONABLY WELL, O2 SAT 93%, CALL LIGHT WITHIN REACH. IV FLUIDS INFUSING PER EMAR WNL.
--- NOTE | 2018-05-15 06:00 | NUR ---
PT AOX4 THIS SHIFT, APPROPRIATE, ON 2LNC WHEN AWAKE, O2 SAT >92%, NO C/O SOB/CP, PT ON BIPAP WHILE SLEEPING, DID NOT TOLERATE AT FIRST BUT WAS ABLE TO TOLERATE LATER IN THE NIGHT, IV FLUIDS INFUSING PER EMAR WNL, 1 PERSON ASSIST/FWW.
--- NOTE | 2018-05-15 06:36 | NUR ---
PATIENTS VITALS TAKEN AND RECORDED. PATIENT IS RESTING IN BED WEARING BIPAP. PATIENT DENIES ANY NEEDS. CALL LIGHT IN REACH.
--- NOTE | 2018-05-15 07:19 | NUR ---
REPORT RECEIVED FROM LYLA AYALA. PT RESTING IN BED WITH EYES CLOSED, BIPAP IN PLACE, O2 SATURATION 94% WITH HR OF 66. BED RAILS UP. CALL LIGHT WITHIN REACH.
--- NOTE | 2018-05-15 09:14 | NUR ---
MORNING ASSESSMENT AND MEDICATIONS DUE. PT SITTING UP IN BED. PT DENIES PAIN AND NAUSEA. PT CONTINUES TO REPORT SOB, "ESPICIALLY WHEN I MOVE AROUND." PT ENCOURAGED TO GET UP TO CHAIR. PT REFUESES. PT STATES "I WILL LATER." ASSESSEMTN DONE. CORSE LUNG SOUNDS IN RLL, WHEEZES THROUGHOUT. PIV . WILL DC LATER ONCE MD HAS BEEN CONSULTED REGARDING PLACING A NEW PIV. IV FLUIDS DC'D PER MD ORDER. MEDICAITONS GIVEN. BED RAILS UP. CALL LIGHT WITHIN REACH. O2 AT 2L NC IN PLACE WITH O2 SATURATION OF 94%. PT DENIES ADDITIONAL REQUESTS OR COMPLAINTS AT THIS TIME.
--- NOTE | 2018-05-15 10:52 | NUR ---
PT UP FOR SHOWER. OT AND METER READER AT BEDSIDE. PT AT 98% ON 2L O2 BY NC. O2 WEANED TO ROOM AIR. PT DEMONSTRATES USE OF I.S. REACHING 1000ML. PT MAINTAINING O2 SATURATIONS FROM 92-98% ON ROOM AIR. PT SHOWERING WITH METER READER AND OCCUPATIONAL THERAPY. NO ADDITIONAL REQEUSTS OR COMPALINTS AT THIS TIME.
--- NOTE | 2018-05-15 12:50 | NUR ---
NOON ASSESSMENT DUE. THIS RN TO BEDSIDE. PT UP TO CHAIR AND REQUESTS TO GET BACK TO BED "FOR A NAP." PT DENIES PAIN AND NAUSEA. ASSESSMENT DONE. COURSE SOUNDS IN LOWER LOBS OF LUNGS. PT UNABLE TO TOLERATE ROOM AIR. SATURATIONS DROPPING TO MID 80'S, PT PLACED BACK ON 2L O2 BY NC. PT HOLDING O2 SATURATIONS ABOVE 92%. GENERALZED SWELLING NOTED IN RIGHT ARM. PT DEMONSTRATES USE OF I.S. REACHING 750. 1PA, FWW BACK TO BED. PIV . PIV DC'D PER PROTOCOL, GAUZE AN COBAN APPLIED. NEW PIV STARTED IN [facility], SALINE LOCKED AT THIS TIME. BED RAILS UP. CALL LIGHT WITHIN REACH.
--- NOTE | 2018-05-15 15:03 | NUR ---
THIS RN TO BEDSIDE TO CHECK ON PT. PT RESTING IN BED AFTER WORKING WITH PHYSIAL THERAPY. PHYSICAL THERAPIST STATES PT WAS ABLE TO AMBULATE 1 LAB AOURND THE [facility] WITH 2 REST BREAKS. PT DENIES PAIN AND NASUEA. O2 SATURATION 92% ON 2L O2 BY NC. NO REQUESTS OR COMPLAINTS AT THIS TIME. CALL LIGHT WITHIN REACH. BED RAILS UP.
--- NOTE | 2018-05-15 16:40 | NUR ---
AFTERNOON ASSESSMENT AND MEDICATION DUE. THIS RN TO BEDSIDE. PT COMPLAINS OF 7/10 PAIN IN HER LOWER BACK. PT REPOSITIONED WITH LIEN LIFT. PT STATES "NOW I HAVE NO PAIN" BUT LATER RATES PAIN AT 6/10. PT STATES SHE IS COMFORTABLE "FOR NOW." WOUND CONSULT RN TO BEDSIDE. PT REFUSES WOUND CONSULT TODAY AND STATES WOUND CONSULT RN CAN COME BACK "MAYBE TOMORROW." ASSESSMENT DONE. EDEMA CONTINUES. HEART FAILURE EDUCATION DONE WITH PT AND PTS SIGNIFICANT OTHER. O2 SATURATION AT 95% ON ROOM AIR. TELE SHOWS IRREGULAR RHYTHEM. MEDICAITON GIVEN (SEE MAR). PT ENCORUAGED TO ORDER DINNER, PT STATES "I ONLY WANT A FRUIT PLATE AND CAKE." ORDER PLACED. BED RAILS UP. CALL LIGHT WITHIN REACH. SIGNIFICANT OTHER AT BEDSIDE.
== END 2018-05-15 17:15 | disposition swing bed (61) | DRG 193 ==
LOC: ED 18:54 → CCU 21:37 → MS 05-13 12:55
PROVIDERS: ADMIT Student in an Organized Health Care Education/Training Program
PROC: 5A09357 Assistance with Respiratory Ventilation, Less than 24 Consecutive Hours, Continuous Positive Airway Pressure (ICD-10-PCS; principal; 2018-05-11)
DX: J13 Pneumonia due to Streptococcus pneumoniae (principal); J96.01 Acute respiratory failure with hypoxia; J98.01 Acute bronchospasm; E86.0 Dehydration; I48.2 Chronic atrial fibrillation; I12.9 Hypertensive chronic kidney disease with stage 1 through stage 4 chronic kidney disease, or unspecified chronic kidney disease; N18.3 Chronic kidney disease, stage 3 (moderate); I25.10 Atherosclerotic heart disease of native coronary artery without angina pectoris; D63.1 Anemia in chronic kidney disease; E78.5 Hyperlipidemia, unspecified; F39 Unspecified mood [affective] disorder; F01.50 Vascular dementia, unspecified severity, without behavioral disturbance, psychotic disturbance, mood disturbance, and anxiety; Z66 Do not resuscitate; Z79.01 Long term (current) use of anticoagulants; Z79.82 Long term (current) use of aspirin; Z79.899 Other long term (current) drug therapy
CPT/HCPCS: 36415; 51702; 51798; 71045; 71046; 80048; 80053; 81001; 82607; 82746; 83735; 83880; 84484; 85025; 85610; 85730; 87088; 87502; 93005; 93010; 94640; 94644; 94660; 94762; 96374; 97116; 97162; 97166; 97530; 97535; 99285-25; J0696; J2930; J7120

== ENCOUNTER 2018-05-15 17:15 | Inpatient (IN) | payer MEDICARE ==
[~2018-05-15] VITALS: Ht 185.4 cm; Wt 99.9 kg
--- OUTSIDE RECORDS SUMMARY | ~2018-05-15 | XMS | Clinical Summary ---
Demographics + + + | Address | [address] | | | [place] [address] | + + + | Home Phone | | + + + | Preferred Language | Unknown | + + + | Marital Status | | + + + | Lutheran Affiliation | 1027 | + + + | Race | Unknown | + + + | Ethnic Group | Unknown | + + + Author + + + | Author | [facility] [employer] | + + + | Organization | [facility] [employer] | + + + | Address | Unknown | + + + | Phone | Unavailable | + + + Support + + + + + | Name | Relationship | Address | Phone | + + + + + | Nancy Tellez | ECON | [address] | | | | | [place] | | | | | [phone] | | + + + + + | rTe Tellez | ECON | Unknown | | + + + + + Care Team Providers + +------+ + | Care Taxonomy Teacher Name | Role | Phone | + [...] | + + + | 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
[~2018-05-15 17:15] MED LIST changes: +FLUOXETINE HCL20 MG PO; +LOSARTAN POTAS100 MG PO
--- NOTE | 2018-05-15 17:50 | NUR ---
Medications reconciled using pharmacy records and interview with Nacny
--- NOTE | 2018-05-15 18:00 | NUR ---
AFTERNOON ASSESSMENT DUE. PT SWITCHED TO SWING BED PER MD ORDER. EDUCATION DONE WITH PT AND FAMILY. PT AND FAMILY VERBALIZE UNDERSTANDING. QUESTIONS ASKED AND ANSWERED. DISEASE PROCESS OF PNEUMONIA EXPLAINED. PT AND FAMILY VERBALIZE UNDERSTANDING. ASSESSMENT DONE. PT MAINTAINING O2 SATURATIONS ABOVE 92% ON 2L O2 BY NC. CRACKELS NOTED. PT REPORTS A PRODUCTIVE COUGH WITH "YELLOW STUFF." PT DENIES PAIN AND NAUSEA. PT DEMONSTRATES USE OF I.S. REACHING 750. PT ENCORUAGED TO DRINK. MINIMAL APPITITE. FAMILY AT BEDSIDE. BED RAILS UP. CALL LIGHT WITHIN REACH.
--- NOTE | 2018-05-15 18:52 | NUR ---
PT SWITCHED TO SWING BED THIS SHIFT FOR PNEUMONIA AND DECONDITIONING. SCHEDULE NEBS. INCENTIVE SPIROMETER AND CORNET AT BEDSIDE. BIPAP DC'D THIS SHIFT. 1-2PA WITH FWW. PT CONTINUES ON 2L O2 BY NC. ROOM AIR TRIAL UNSUCESSFUL THIS SHIFT. PHYSICAL THERAPY INVOLVED. ENCORUAGE PO FLUIDS, VOIDING QUANTITY SUFFICIENT THIS SHIFT, DARK YELLOW URINE CONTINUES. PT DENIES PAIN AND NAUSEA THIS SHIFT. PT USES CALL LIGHT APPROPRIATLY.
--- NOTE | 2018-05-15 19:31 | NUR ---
REPORT RECEIVED, PT RESTING IN BED VISITING WITH FAMILY, ON 2LNC, O2 SAT 93%, NO C/O SOB/CP, NO REQUESTS AT THIS TIME, CALL LIGHT WITHIN REACH. FALL PRECAUTIONS IN PLACE.
--- NOTE | 2018-05-15 20:25 | NUR ---
PT TO BEDSIDE CHAIR, TOLERATED WELL, AMBULATED WITH 1 PERSON ASSIST/FWW, CALL LIGHT WITHIN REACH. ON 2LNC, NO C/O SOB/CP.
--- NOTE | 2018-05-15 21:52 | NUR ---
IN ROOM TO ADMIN SCHEDULED MEDS, ASSESSMENT COMPLETE, PT'S LS REMAIN COURSE, VOICE AND COUGH ARE CONGESTED, UPPER AIRWAY WHEEZES NOTED, PT ON 2LNC, DENIES SOB/CP, VSS, PT ABLE TO REACH 750 ON IS, EDUCATION PROVIDED REGARDING IS AND CPT, PT USED CPT X10 TOLERATED WELL, EDUCATED PT TO USE IS AND CPT FREQUENTLY, PO FLUIDS ENCOURAGED WELL, PT AGREEABLE TO POC, NO REQUESTS AT THIS TIME, CALL LIGHT WITHIN REACH, FALL PRECAUTIONS IN PLACE.
--- NOTE | 2018-05-15 23:00 | NUR ---
PT RESTING IN BED, ON 2LNC, NO C/O SOB/CP, NO REQUESTS AT THIS TIME, CALL LIGHT WITHIN REACH. FALL PRECAUTIONS IN PLACE.
--- NOTE | 2018-05-15 23:14 | NUR ---
PT C/O NASAL DECONGESTION DUE TO NC, PT PLACED ON OXY MASK AT 2L WITH HUMIDIFICATION, PT DENIES SOB/CP, O2 SAT 94%, CALL LIGHT WITHIN REACH, NO NEEDS AT THIS TIME. FALL PRECAUTIONS IN PLACE.
--- NOTE | 2018-05-16 00:22 | NUR ---
V/S AND I&O DONE AND CHARTED. HELPED PATIENT GO TO BED. CALL LIGHT WITHIN REACH. WARM BLANKET PROVIDED.
--- NOTE | 2018-05-16 01:33 | NUR ---
CALL LIGHT ANSWERED, PT C/O SOB, PT IN ROOM WITH OXYGEN MASK OFF, O2 SAT HAD DESATURATED, PT'S OXYGEN MASK PLACED BACK ON PT, AND PT'S O2 SAT SLOWLY CARTER TO 92% ON 2L VIA OXY MASK, PT'S RR 22, PT DESCRIBED THAT HE FELT FAINT/NAUSEOUS, DENIES CHEST PAIN, ONLY STOMACH DISCOMFORT, PT STATES THAT THE PO MEDICATION FROM PREVIOUS GAVE HIM AN UPSET STOMACH, CRACKERS PROVIDED PER PT'S REQUEST, NASAL SPRAY ALSO PROVIDED TO PT TO ASSIST WITH NASAL CONGESTION. PT CURRENTLY RESTING IN BED, O2 SAT 92% ON 2L VIA OXY MASK, HR 94, RR, 19. 0139 PT CONTINUES TO FEEL NAUSEOUS, PRN ZOFRAN ODT GIVEN PER EMAR PER PT'S REQUEST, THIS RN REMAINS IN ROOM.
--- NOTE | 2018-05-16 02:03 | NUR ---
PT REQUESTED TO HAVE A PRN BREATHING TREATMENT, RT CALLED, RT AND THIS RN TO THE ROOM, PT OFFERED A BREATHING TREATMENT AND PT THEN REFUSED THE BREATHING TREATMENT STATING "LET'S HOLD OFF FOR NOW", PT RESTING IN BED, BREATHS EVEN, UNLABORED, ON 2LNC, O2 SAT 93%, RR 17, CALL LIGHT WITHIN REACH, FALL PRECAUTIONS IN PLACE.
--- NOTE | 2018-05-16 02:39 | NUR ---
PT RESTING IN BED, PT STATES THAT HE FEELS MUCH BETTER NOW AND THAT HE HAS BEEN ABLE TO GO IN AND OUT OF SLEEP, PT DENIES NAUSEA AT THIS TIME, DENIES SOB/CP, ON 2L VIA OXY MASK, NO REQUESTS AT THIS TIME, CALL LIGHT WITHIN REACH. FALL PRECAUTIONS IN PLACE.
--- NOTE | 2018-05-16 03:48 | NUR ---
PT RESTING IN BED, EYES CLOSED, BREATHS EVEN, UNLABORED, NO REQUESTS AT THIS TIME, ON 2L VIA OXY MASK, CALL LIGHT WITHIN REACH.
--- NOTE | 2018-05-16 04:16 | NUR ---
PT AOX4 THIS SHIFT, APPROPRIATE, PT DID BECOME NAUSEOUS X1 THIS SHIFT AND SUBSEQUENTLY REMOVED HIS OXYGEN FOR A PERIOD AND BECAME SOB, PT RECEIVED PRN ZOFRAN PER EMAR AND O2 WAS PLACED BACK ON PT, PT TOLERATING 2LNC, O2 SAT >92%, VSS, PT SAT UP IN BEDSIDE CHAIR FOR ROUGHLY AN HOUR AT BEGINNING OF SHIFT, TOLERATED WELL, 1 PERSON ASSIST/FWW, HAS USED CALL LIGHT APPROPRIATELY, IV IN LFA SL, FLUSHES WELL. PT STATES THAT HE WOULD LIKE TO BE GIVEN A SMALL SNACK WITH PO MEDS TO PREVENT NAUSEA IN THE FUTURE.
--- NOTE | 2018-05-16 05:06 | NUR ---
PT AWAKE RESTING IN BED, PT STATES THAT HE HAS FELT BETTER WITH OXYGEN REMAINING ON AND WAS ABLE TO GET SOME SLEEP THE LAST FEW HOURS, PT ON 2L VIA OXY MASK, O2 SAT 93%, PT STATES THAT HE HAS HAD A COUGH RECENTLY, PT ENCOURAGED TO CDB, CPT USED, NO FURTHER REQUESTS AT THIS TIME, CALL LIGHT WITHIN REACH.
--- NOTE | 2018-05-16 07:28 | NUR ---
REPORT RECEIVED FROM JAMIE ARITA. PT REPORTS NAUSEA AND "NOT FEELING WELL." SHEETS SOILED URINAL HAD SPILT. PT UP TO SIT ON EDGE OF BED. SHEETS CHANGED. MIQUEL CARE DONE. PT BOOSTED UP IN BED. O2 SATURATION 93% ON 2L O2 BY OXY MASK. PT REFUSES TO GET UP TO CHAIR. PT REQUESTS HIS BE CALLED TO COME IN "FOR MORAL SUPPORT." PTS CALLED AND STATES SHE WILL BE HERE AROUND 8-9AM. PT UPDATED. PT RESTING IN BED. BED RAILS UP. CALL LIGHT WITHIN REACH. BREAKFAST ORDERED.
--- NOTE | 2018-05-16 08:30 | NUR ---
PATIENT RESTING IN BED, FAMILY IN ROOM. PATIENT REFUSING TO GET UP TO CHAIR, AND REFUSING AM CARE. AM CARE SET UP IN BATHROOM FOR PATIENT TO USE AT A LATER TIME PER FAMILY'S REQUEST. PATIENT CALL LIGHT IN REACH. NO OTHER NEEDS AT THIS TIME.
--- NOTE | 2018-05-16 10:21 | NUR ---
MORNING ASSESSMENT AND MEDICATION DUE. PT RESTING IN BED WITH EYES CLOSED. WHEEZING HEARD, RT CALLED FOR BREATHING TX. PT DENIES PAIN BUT REPORTS "A LITTLE" NAUSEA. SEE MAR FOR MEDICATION GIVEN. 1PA, FWW UP TO CHAIR. WHEEZES AND COURSE LUNG SOUNDS THROUGHOUT. PITTING EDMENA IN RUE. PT REPORTS BURNING WITH URINATION. INFOMRED. PT DEMONSTRATES USE OF CORNET AND INCENTIVE SPIROMETER, REACHING 1000ML. PT VISITING WITH FAMILY AND AWIATING PHYSICAL THERAPY. NO ADDITIONAL REQUESTS OR COMPLAINTS AT THIS TIME. CALL LIGHT WITHIN REACH.
--- NOTE | 2018-05-16 10:40 | NUR ---
THIS RN TO ROOM TO CHECK ON PT. FAMILY REPORTS PT HAS BEEN HAVING "HALLUCINATIONS OF A TALL MAN." PT DENIES PAIN AND NAUSEA. PT VISITING WITH FAMILY UP IN CHAIR. INFOMRED OF BURNING URINATION AND HALLUCINATIONS. NEW ORDERS FOR A CLEAN CATCH UA. INSRUCTIONS GIVEN TO PT. FAMILY AND PT VERBALIZE UNDERSTANDING. CALL LIGHT WITHIN REACH.
--- NOTE | 2018-05-16 10:45 | NUR ---
PATIENT SITTING UP IN BEDSIDE RECLINER, VISITING WITH FAMILY. RN AND STUDENT NURSE YANDEL IN ROOM WITH PATIENT. PATIENT CALL LIGHT IN REACH. NO OTHER NEEDS AT THIS TIME.
--- NOTE | 2018-05-16 11:53 | NUR ---
PT CALL LIGHT ON. FAMILY STATES PT HAS A URINE SAMPLE READY. THIS RN TO BEDSIDE. URINE SAMPLE SENT TO LAB (CLEAN CATCH). PT UP TO CHAIR. LUNCH ARRIVED. PT EATING LUNCH. PT ENCOURAGED TO DRINK WATER. PT REACHES 900 ON INCENTIVE SPIROMETER, AND DEMONSTRATES USE OF CORNET. O2 SATURATIONS 94% ON 2L O2 BY NC. NO ADDITIONAL REQUESTS OR COMPLAINTS AT THIS TIME. PT VISITING WITH FAMILY. CALL LIGHT WITHIN REACH.
--- NOTE | 2018-05-16 13:30 | NUR ---
THIS RN TO ROOM TO CHECK ON PT. PT BACK TO BED "TO REST." PT ANTICIPATING PHYSICAL THERAPY THIS AFTERNOON. PT DENIES PAIN AND NAUSEA. NO ADDIITONAL REQUESTS OR COMPLAINTS. EDUCATION DONE WITH FAMILY. ADDITIONAL QUESTIONS ANSWERED REGARDING PTS ILLNESS AND SWING BED STATUS. FAMILY STATES THEIR QUESTIONS HAVE BEEN ANSWERED. PT DENIES ADDITIOANL REQUESTS OR COMPLAINTS. CALL LIGHT WITHIN REACH.
--- NOTE | 2018-05-16 16:00 | NUR ---
THIS RN TO ROOM TO CHECK ON PT. MD TO BEDSIDE FOR ROUNDS. PT RESTING IN BED. FAMILY VERBALIZES UNDERSTANDING OF PLAN OF CARE. PT DENIES PAIN. PT ENCOURAGED TO GET UP TO CHAIR. PT AGREES. 1PA, FWW UP TO CHAIR. PT REPORTS NAUSEA. SEE MAR FOR MEDICATION GIVEN. FRESH ICE PROVIDED. PT DECLINES SHOWER TODAY. WILL ASK AGAIN LATER. PT REACHES 1000 ON INCENTIVE SPIROMETER. PT DEMONSRATES USE OF CORNET. NO ADDITIONAL REQUESTS OR COMPLAINTS. FAMILY AT BEDSIDE. CALL LIGHT WITHIN REACH.
--- NOTE | 2018-05-16 17:09 | NUR ---
PATIENT SITTING UP IN BEDSIDE RECLINER, VISITING WITH FAMILY. PATIENT REFUSED A SHOWER TODAY AND PM CARE. PATIENT CALL LIGHT IN REACH. NO OTHER NEEDS AT THIS TIME.
--- NOTE | 2018-05-16 18:33 | NUR ---
PT SWING BED FOR PNEUMONIA AND DECONDITIONING. 1-2PA FWW, ENCOURAGE AMBULATION AND TIME UP TO CHAIR. PHYSICAL THERAPY TODAY. PT AMBULATED 1 LAP IN [place] WITH 2 REST BREAKS. MINIMAL APPITITE THIS SHIFT, ENCOURAGE PO INTAKE. PT REMAINS ON 2L O2 BY NC. CPOX DC'D. PT MAINTAINING O2 SATURATIONS ABOVE 92%. WARFARIN HELD THIS SHIFT. UA DONE THIS SHIFT FOR BURNING WITH URINATION AND HALLUCINATIONS. LOOSE BM THIS SHIFT, DEPENDS IN PLACE. PT UP TO CHAIR FOR MEALS, TIME UP IN CHAIR ENCOURAGED. PT USES CALL LIGHT INCONSISTANTLY.
--- NOTE | 2018-05-16 19:00 | NUR ---
SHIFT REPORT RECEIVED. PATIENT RESTING IN BED. 2L NC. PATIENT DENIES NEEDS. CALL LIGHT IN REACH.
--- NOTE | 2018-05-16 22:00 | NUR ---
PATIENT ASSISTED TO BATHROOM AND BED BY [employer]. PATIENT VS STABLE. CONTINUES TO REQUIRE 2L NC. LUNGS ARE CORSE AND EXP WHEEZE HEARD IN RUL. PATIENT RECEIVED SCHEDULED NEB FROM RT. ENCOURAGE IS/CPT USE. PATIENT DENIES PAIN OR NAUSEA. ENCOURAGED ORAL FLUIDS. PATIENT'S RIGHT EYE APPEARS TO HAVE A BROKEN BLOOD VESSEL WHICH ISN'T HINDERING HIS VISION. PATIENT DENIES ANY NEEDS AT THIS TIME. CALL LIGHT IN REACH.
--- NOTE | 2018-05-17 00:15 | NUR ---
PATIENT APPEARS TO BE SLEEPING. URNAL AT BEDSIDE. CALL LIGHT IN REACH. 2L NC IN PLACE.
--- NOTE | 2018-05-17 04:17 | NUR ---
PATIENT APPEARS TO BE SLEEPING SOUNDLY. CALL LIGHT IN REACH. BED ALARM ON. RR 20. 2L NC IN PLACE.
--- NOTE | 2018-05-17 06:47 | NUR ---
PATIENT SLEPT MOST OF THE SHIFT. WAS INCONTINENT OF URINE AND BOWEL THIS SHIFT. APPEARS VERY DROWST BUT IS ALERT AND ORIENTED THIS AM. UP TO CHAIR. BREATHING HAS AUDITORY WHEEZE, APPEARS UPPER AIRWAY. LUNGS ARE COARSE. ENOCURAGED COUGH AND DEEP BREATHING. SL. ENCOURAGE ORAL FLUIDS.
--- NOTE | 2018-05-17 07:08 | NUR ---
BEDSIDE REOPRT RECEIVED FROM LYLA GARCIA. PT SITTING UP IN CHAIR ON 2LPNC, A/O, CALL LIGHT AND H2O IN REACH. FAMILY AT BEDSIDE. NO CONCERNS VOICED.
--- NOTE | 2018-05-17 08:32 | NUR ---
PT SITTING UP IN CHAIR WATCHING NEWS ON TV. ASSESSMENT COMPLETED, AM VS'S TAKEN AND STABLE. AM MEDS ADMINISTERED. PT DENIES SOB OR PAIN. FRESH ICE WATER AND ICE PROVIDED PER PT REQUEST. CALL LIGHT AND H2O IN REACH.
--- NOTE | 2018-05-17 09:24 | NUR ---
PATIENT IS IN THE CHAIR. PATIENT JUST TOOK A SHOWER AND LINEN WAS CHANGED.
--- NOTE | 2018-05-17 12:48 | NUR ---
PT SITTING IN CHAIR, SURROUNDED BY FAMILY. HE IS ALERT, ORIENTED AND FRIENDLY. FAMILY WANTED ME TO KNOW PT IS LDS BY VERN. EXTENDED A BLESSING, WILL FOLLOW NEEDED
--- NOTE | 2018-05-17 14:25 | NUR ---
Pt sitting in bed a/o, watching tv, nasal canula found to be off of pt, room air sat 88% so o2 titrated back up to 2lpnc. Call light and h2o in reach. Pt denies feeling sob even when he was on room air. pt was encouraged to cough and deep breath and to use I.S. 10x per hour. No further needs/concerns voiced.
--- NOTE | 2018-05-17 16:05 | NUR ---
Pt resting supine in bed, eyes closed and respirations even and unlabored on 2lpnc. Call light and H20 in reach. Pt appears to be sleeping comfortably.
--- NOTE | 2018-05-17 18:15 | NUR ---
PT CONTINUES TO WORK WITH PT/OT. PT TOLERATES 2LPNC WITH O2 SATS IN MID 90'S. PT DESATS ON ROOM AIR TO 88% SO CONTINUES ON 2LPNC. SBA WITH FWW. OOB TO CHAIR FOR MEALS AND PRN. PT USES URINAL INDEPENDANTLY, URINE OUTPUT CONTINUES TO BE LOW BUT URINE IS CLEAR YELLOW AND DR TAYLOR IS AWARE OF LOW URINE OUTPUT. PT CALLS APPROPRIATLEY AND FAMILY HAS BEEN IN VISITING WITH PT ON AND OFF TODAY. PT CONTINUES WTIH SCHEDULED NEBS PER RT AND CHEST PHYSIOTHERAPY.
--- NOTE | 2018-05-17 19:00 | NUR ---
SHIFT REPORT RECEIVED. PATIENT IN RECLINER. FAMILY IN ROOM. PATIENT DENIES NEEDS AT THIS TIME. CALL LIGHT IN REACH.
--- NOTE | 2018-05-17 20:02 | NUR ---
HELPED PT INTO BED FROM HIS CHAIR WITH HIS FWW. VITALS AND I&OS DONE AND CHARTED. INFORMED RN JOSE OF LOW OUTPUT. BEDSIDE TABLE AND CALL LIGHT IN REACH. PT NEEDS NOTHING AT THIS TIME.
--- NOTE | 2018-05-17 20:30 | NUR ---
PATIENT ASSISTED TO BED BY MAY RN. PATIENT IS ROIENTED TO SURROUNDINGS, SELF AND THE YEAR. LUNGS ARE COARSE. 2L NC. COURAGED COUGH AND DEEP BREATHING. PATIENT DENIES PAIN OR NAUSEA. NO TOILETING NEEDS AT THIS TIME. ATTENDS IN PLACE. PATIENT DENIES ANY NEEDS. CALL LIGHT IN REACH AND BED ALARM ON.
--- NOTE | 2018-05-17 20:41 | NUR ---
HELPED PT WITH HIS URINAL.
--- NOTE | 2018-05-17 23:00 | NUR ---
PATIENT APPEARS TO BE SLEEPING SOUNDLY. RR 18. 2L NC.
--- NOTE | 2018-05-18 00:55 | NUR ---
CHANGED PT'S ATTEND INCONTINENT WITH URINE AND A SMEAR OF BM. BEDSIDE TABLE AND CALL LIGHT IN REACH. PT NEEDS NOTHING AT THIS TIME.
--- NOTE | 2018-05-18 02:00 | NUR ---
PATIENT APPEARS TO BE SLEEPING SOUNDLY. RR 18. CALL LIGHT IN REACH. BED ALARM ON. ATTENDS DRY.
--- NOTE | 2018-05-18 04:00 | NUR ---
PATIENT RESTING IN BED. RR 20. 2L NC IN PLACE. PATIENT DENIES NEEDS. ATTENDS IS DRY. CALL LIGHT IN REACH.
--- NOTE | 2018-05-18 05:38 | NUR ---
PATIENT SLEPT WELL THIS SHIFT. INCONTINENT OF URINE OCCATIONALLY, ATTENDS IN PLACE. 2L NC. ENCOURAGED IS/CPT USE WHILE AWAKE. LIMITED ORAL FLUIDS, ENCOURAGED WHILE AWAKE. LUNGS ARE COARSE THROUGHOUT AND PATIENT HAS CONGESTIVE COUGH. SCHEDULED NEBS. ORIENTED TO ALL EXCEPT THE DATE.
--- NOTE | 2018-05-18 05:50 | NUR ---
PATIENT RESTING IN BED WATCHING TV WHEN RN ENTERED ROOM. ORIENTED X3. PATIENT DENIES NEEDS. ATTENDS ARE DRY.
--- NOTE | 2018-05-18 06:53 | NUR ---
helped pt to the chair from the bed. changed his attends incontinent of urine. bedside table and call light in reach. pt needs nothing at this time.
--- NOTE | 2018-05-18 07:07 | NUR ---
Pt sitting up in chair on 2lpnc. Bedside reoport received from LYLA Barrios. Pt denies pain or SOB, per Sophie report pt has had decreased po intake. Pt expresses that he does not like water. Cranberry juice/sprite cocktail provided to patient and pt expreses thanks and states he will drink it. Call light in reach and family at bedside. No further needs/concerns voiced.
--- NOTE | 2018-05-18 08:14 | NUR ---
PATIENT WAS UP IN HIS CHAIR, SON WAS IN THE ROOM WITH HIM, BED WAS CHANGED, FACE WAS WASHED. BREAKFAST WAS ORDERED. NO OTHER NEEDS AT THIS TIME.
--- NOTE | 2018-05-18 08:20 | NUR ---
PT SITTING UP IN CHAIR, CALL LIGHT AND H2O IN REACH. PT WATCHING TV WITH FAMILY VISITING AT BEDSIDE. AM ASSESSMENT COMPLETED. VS'S TAKEN AND STABLE. AM MEDICATIONS ADMINISTERED. PT DENIES SOB ON 2LPNC. BEVERAGES AND CALL LIGHT IN REACH. BREAKFAST TRAY ALSO ARRIVED AND WAS SET UP FOR PATIENT. NO FURTHER NEEDS/CONCERNS VOICED.
--- NOTE | 2018-05-18 11:30 | NUR ---
PT RECLINED IN RECLINER CHAIR, EYES CLOSED AND RESPIRATIONS EVEN AND UNLABORED. CALL LIGHT AND H20 IN REACH. PT APPEARS TO BE SLEEPING COMFORTABLY.
--- NOTE | 2018-05-18 12:19 | NUR ---
SON HAS BEEN HERE WITH PT MOST OF MORNING. PT IS UP AND AMBULATING IN HALLWAY WITH Ayden AYALA. WORKING VERY HARD-SON ACKNOWLEDGED TO PT SO. GAVE ENCOURAGEMENT, WILL CONTINUE TO FOLLOW NEEDED
--- NOTE | 2018-05-18 14:38 | NUR ---
Pt resting in bed, low urine output noted and MD notified, no new orders. Pt maintaining sats in 90's on 2lpnc and denies sob. Call light and H2O in reach. Pt appears to be in no acute distress.
--- NOTE | 2018-05-18 16:02 | NUR ---
Pt resting supine in bed on 2lpnc and satting at 94% o2 titrated off and pt maintains o2 sats between 92% to 95% on room air. Pt denies sob or pain. Call light in reach and RT arrived for scheduled breathing tx.
--- NOTE | 2018-05-18 16:21 | NUR ---
In to see patient, room air sat 88-89% at this time and pt reports slight sob. o2 titrated up to 1lpnc and pt now 93% and denies sob. Call light and h20 in reach. MD aware.
--- NOTE | 2018-05-18 19:30 | NUR ---
PATIENT IN NO PAIN. SITTING UP IN THE CHAIR WATCHING TV.
--- NOTE | 2018-05-18 21:20 | NUR ---
ADM PT ABX PER APR. PT USED URINAL, ASSISTED PT IN CHANGING THE WET ATTENDS THE URINAL SPILT. PT ABLE TO ASSIST IN PUSHING SELF HIGHER IN BED, NOTED ON EXERTION HIS O2 SATS DESATED TO 70-80'S TOOK SEVERAL MINS TO RECOVER TO HAVING SATS ABOVE 89 ON RA. PT SATS, ONCE PT SETTLED DOWN, AND QUIT COUGHING, INCREASED TO 92% ON RA.
--- NOTE | 2018-05-18 23:30 | NUR ---
PATIENT RESTING IN BED WATCHING TV.
--- NOTE | 2018-05-19 01:30 | NUR ---
PATIENT RESTING QUIETLY, RESPS REGULAR, PATIENT ON 1L/NC.
--- NOTE | 2018-05-19 03:26 | NUR ---
WITH THE HELP OF LYLA HOUSER WE HELPED PT TO THE BATHROOM AND BACK TO BED WITH HIS FWW. BEDSIDE TABLE AND CALL LIGHT IN REACH. PT NEEDS NOTHING MORE AT THIS TIME.
--- NOTE | 2018-05-19 05:30 | NUR ---
PATIENT HAS REMAINED ON 1L/NC THROUGH THE NIGHT SATING AT 93%. UP TO THE BATHROOM FOR A BM WITH OUT RESULTS. USES URINAL INDEPENDENTLY. WHEEZES THROUGHOUT ALL LUNG GUTIERREZ. HAS RESTED ON AND OFF THROUGH THE SHIFT.
--- NOTE | 2018-05-19 07:39 | NUR ---
0710: Bedside report recived from Durga ARITA. Pt resting in his bed and appears comfortable at this time. He is visiting with his son and his call laura is within reach.
--- NOTE | 2018-05-19 09:24 | NUR ---
PT RESTING IN HIS BED VISITING WITH HIS SON, HE DENIES ANY PAIN OR SOB. PT'S LUNG SOUNDS HAVE EXP WHEEZES NOTED AND THE PT WAS ENCOUARGE TO COUGH/DEEP BREATH AND USE HIS IS WHICH HE STATES HE IS. PT DOES COMPLAIN OF FEELING TIRED. CALL GUERRA AND PERSONAL ITEMS REMAIN IN REACH.
--- NOTE | 2018-05-19 10:30 | NUR ---
SPOKE WITH PATIENT AND FAMILY IN ROOM. HIS [place] AND TWO ADULT CHILDREN FROM OUT OF [place]OWN. PATIENT UP IN CHAIR. PATIENT IS AWAKE, ALERT. STATES HE HAS SOME "MEMORY ISSUES" BUT PATIENT ANSWERS QUESTIONS APPROPRIATELY. HE STATES HE IS "VERY TIRED TODAY". FAMILY STATES HE HAS JUST WORKED WITH THERAPY AND IS DOING OK. ALL AGREE IT IS SLOW BUT FEEL HE IS PROGRESSING. PATIENT DENIES PAIN OR SOB AT THIS TIME. DISCUSSED THERAPY PROGRAM AND QUESTIONS ANSWERED. WORRIED ABOUT HIM BEING SENT HOME TOO SOON. DISCUSSED THAT HIS GOALS MUST BE MET BEFORE THAT AND WE VALUE THEIR INPUT ALSO ON HOW THEY FEEL HE IS DOING. ENCOURAGED THEM TO TALK WITH THERAPISTS AND DR REGARDING CONCERNS, TOO. ALL QUESTIONS ANSWERED AT THIS TIME. WILL CONTINUE TO FOLLOW.
--- NOTE | 2018-05-19 11:12 | NUR ---
SAT ON ROOM AIR IS 87%, O2 INCREASED TO 2L AND SAT INCREASED TO 93%. PT AND FAMILY ENCOURAGED TO DEEP BREATH, COUGH AND TO USE HIS IS AND ACCUPELLA AT LEAST HOURLY. PT HELPED TO THE CHAIR AND HE WAS ENCOUARGED TO ATTEMPT TO BE OUT OF BED FOR A WHILE TODAY. FAMILY PRESENT IN THE ROOM AT THIS TIME.
--- NOTE | 2018-05-19 12:11 | NUR ---
Pt assisted to the br and he had a small bm at this time. Pt helped back to the chair and is now eating his lunch. Family remains in the room with the pt.
--- NOTE | 2018-05-19 12:37 | NUR ---
PT AMBULATING IN HALLS WITH P.T. PT CONCENTRATING AND FOCUSED. VISITED WITH PT'S SON, HE IS CONCERNED ABOUT LACK OF MOTIVATION ON PT'S PART UPON DC. PT STATED HE WANTED TO OUTLIVE HIS PARENTS-THEY WERE BOTH IN THEIR 90'S WHEN PASSED. SON MENTIONED THAT PT HAS END OF LIFE PLANS ALL IN PLACE, SON IS VERY THANKFUL PT HAS DONE THIS. GAVE ENCOURAGEMENT, WILL FOLLOW NEEDED
--- NOTE | 2018-05-19 14:26 | NUR ---
Pt sleeping at this time.
--- NOTE | 2018-05-19 14:44 | NUR ---
Pt helped to the BR with 1 person assist with the use of his FWW. Pt stronger this afternoon than he was this AM. Pt had a small formed BM and was helped back to bed. Pt is now workinig with physical therapy.
--- NOTE | 2018-05-19 15:44 | NUR ---
Pt resting in his chair with no compliants at this time and is visiting with his family and watching tv.
--- NOTE | 2018-05-19 16:53 | NUR ---
Pt sleeping at this time.
--- NOTE | 2018-05-19 17:03 | NUR ---
PT sleeping, sat 90% on 2l vis nc.
--- NOTE | 2018-05-19 18:15 | NUR ---
PT'S SAT DECREASED INTO THE 80'S ON 1L AND O2 WAS INCREASED TO 2L AND HAS STAYED IN THE 90'S SINCE. PT DENIES ANY PAIN THIS SHIFT. PT STRONGER THIS AFTERNOON THAN HE WAS THIS AM. PT STATES HE FEELS "BETTER" THIS AFTERNOON.
--- NOTE | 2018-05-19 18:38 | NUR ---
Pt complains of nausea and was medicated at this time. Pt has not yet eaten any of his dinner.
--- NOTE | 2018-05-19 20:12 | NUR ---
PATIENT UP TO THE BATHROOM FOR BM WITH FWW AND 1PA AND THEN BACK TO BED TOLERATED WELL.
--- NOTE | 2018-05-19 22:05 | NUR ---
PATIENT RESTING QUIETLY, EYES CLOSED, RESPIRATIONS REGULAR AND EVEN. CALL LIGHT IN REACH.
--- NOTE | 2018-05-20 00:09 | NUR ---
PATIENT JUST CALLED TO USE THE RESTROOM. SUJATA ARROYO IS HELPING HIM CURRENTLY.
--- NOTE | 2018-05-20 01:17 | NUR ---
PATIENT RESTING QUIETLY ON 2L/NC, EYES CLOSED, RESPIRATIONS EVEN WITH AN AUDIBLE EXPIRATORY WHEEZE.
--- NOTE | 2018-05-20 03:06 | NUR ---
PATIENT JUST UP TO THE BATHROOM WITH FWW AND 1PSBA AND THEN BACK TO BED. TOLERATED WELL.
--- NOTE | 2018-05-20 04:54 | NUR ---
PATIENT STILL RESTING QUIETLY ON 2L/NC AND OTHER THAN USING THE RST ROOM HAS REMAINED THAT WAY MOST THE NIGHT.
--- NOTE | 2018-05-20 07:21 | NUR ---
0705: BEDSIDE REPORT RECIEVED FROM CORRINA ARITA. PT LAYING IN BED WITH NO COMPLAINTS AND HIS CALL GUERRA IS WITHIN REACH. PT'S SON IS AT THE BEDSIDE.
--- NOTE | 2018-05-20 08:57 | NUR ---
PT DROWSY AT THIS TIME, HE WILL AWAKE TO VOICE AND QUICKLY FALL BACK TO SLEEP. SAT 95% ON 3L VIA OXYMASK. LUNG SOUND COARSE THROUGHOUT WITH EXP WHEEZES ON THE RIGHT SIDE.
--- NOTE | 2018-05-20 10:13 | NUR ---
1000: Dr Farmer was called and notified of the pt's resp status, urine output, and blood pressure. Lasix and chest x-ray ordered. 1015: Pt medicated as ordered and x-ray notified of the order. Pt and his family updated to the his POC and the family state understanding.
--- NOTE | 2018-05-20 10:16 | NUR ---
SAT IS 94% ON 3L VIA OXYMASK AT THIS TIME, PT REAMINS ON PULSE OX.
--- NOTE | 2018-05-20 10:25 | NUR ---
X-RAY TO THE PT'S ROOM AT THIS TIME.
--- NOTE | 2018-05-20 12:24 | NUR ---
Pt assisted up from bed to chair with assistance from PT and this RN. Pt maintaining sats in 90's on 3lper oxy mask. Warm blanket and fresh ice water provided per pt request. family at bedside. Call light in reach and pt denies further needs/concerns.
--- NOTE | 2018-05-20 13:27 | NUR ---
PT SITTING UP IN HIS CHAIR, SAT 95% ON 3L VIA OXYMASK. PT DENIES ANY SOB AT THIS TIME, HE WAS ENCOURGED TO USE HIS IS.
--- NOTE | 2018-05-20 14:01 | NUR ---
In to answer call light pt uses urinal in chair and was assisted up from chair to bed per his request with heavy 1person assist from chair to bed with fww. Pt requests to use urinal again once in bed so pt again assisted with urinal. Pt voids clear yellow urine. Small frequent amounts. Pt continues on 3L per oxy mask and denies sob. H2o and call light in reach. Pt denies further needs or concerns
--- NOTE | 2018-05-20 14:56 | NUR ---
Pt sleeping, sat 92% ON 3L VIA OXYMASK, rr 20.
--- NOTE | 2018-05-20 15:38 | NUR ---
PT CONTINUES SLEEPING AND AWOKE TO VOICE. I REQUESTED THAT HE GET UP TO HIS CHAIR AND WORK ON HIS IS. JOY REFUSED AND QUICKLY FELL BACK TO SLEEP. SAT ON 3L IS 95%.
--- NOTE | 2018-05-20 16:40 | NUR ---
I awoke the pt and requested that he get out of bed, sit in his chair, deep breath/cough and use his IS. Pt was reluctant but did as I requested. Sat is 94% on 3l at this time.
--- NOTE | 2018-05-20 18:14 | NUR ---
PATIENT SITTING IN CHAIR RESTING WITH EYES CLOSED, FAMILY IN ROOM. FRESH WATER GIVEN. CALL LIGHT IN REACH. NO FURTHER NEEDS AT THIS TIME.
--- NOTE | 2018-05-20 20:05 | NUR ---
ROUNDED CHARGE. PATIENT IS RESTING IN BED. PATIENT DENIES ANY COMMENTS, QUESTIONS, OR CONCERNS NO NEEDS NOTED. CALL LIGHT IN REACH.
--- NOTE | 2018-05-20 20:06 | NUR ---
PATIENT RESTING QUIETLY EYES CLOSED, PULSE OX READS 95% ON 3L/ OXY MASK, WITH HR=77. PATIENT MAINLY IGNORONG NURSE INTER ACTION. WILL TRY TO GIVE EVENING MEDS.
--- NOTE | 2018-05-20 22:00 | NUR ---
PATIENT RESTING QUIETLY SUPINE. 3L/NC OXYMASK ON. SATS 95% AND HR=74.
--- NOTE | 2018-05-21 | NUR ---
PATIENT STIL RESTING QUIETLY ON LEFT SIDE. SATS 93% ON 3L/OXYMASK WITH HR=56.
--- NOTE | 2018-05-21 02:33 | NUR ---
PATIENT RESTING QUIETLY SUPINE, SATS 94% ON 3L/OXYMASK, HR=60.
--- NOTE | 2018-05-21 03:39 | NUR ---
SANJAY RESTING ON HIS RIGHT SIDE. 93% SAT ON 3L/OXY MASK AND HR OF 58.
--- NOTE | 2018-05-21 05:48 | NUR ---
PATIENT HAS RESTED WELL MOST OF THE NIGHT, EYES CLOSED, RESPS HAVE BEEN WHEEZY BUT REGULAR AND EVEN. SATS HAVE STAYED ABOVE 90% ON 3L/OXY MASK. NO C/O PAIN. HAD 2 INCONTINENET OF URINE EPISODES AND VOIDED 100MLS OF URINE PER URINAL. PATIENT DRANK 300MLS OF WATER THIS SHIFT.
--- NOTE | 2018-05-21 07:41 | NUR ---
0710: BEDSIDE REPORT RECIEVED FROM CORRINA ARITA. PT SLEEPING WITH A SAT OF 92% ON 3L VIA OXYMASK. PT'S SON PRESENT AND CALL GUERRA IS WITHIN REACH.
--- NOTE | 2018-05-21 08:54 | NUR ---
PT WAS ENCOURAGED TO GET OUT OF BED AND INTO HIS CHAIR WHICH HE AGREED TO. PT HELPED UP AND HIS STATES HE IS COMFORTABLE AND IS NOW VISITING WITH HIS FAMILY. CALL GUERRA WITHIN REACH.
--- NOTE | 2018-05-21 10:57 | NUR ---
PT RESTING IN HIS BED VISITING WITH HIS . PT AGREES TO GO ON A WALK IN A SHORT BIT WITH PHYSICAL THERAPY.
--- NOTE | 2018-05-21 14:32 | NUR ---
PATIENT BLADDER SCANNED FOR 700+ ML. DR. TAYLOR NOTIFIED. PATIENT HAS SMALL AMOUNT OF URINE LESS THAT 100ML IN URINAL. DISCUSSED WITH PATIENT AND PRIMARY NURSE PLAN TO RECHECK AND CONTACT DOCTOR IF PATIENT CONTINUES TO BE UNABLE TO VOID.
--- NOTE | 2018-05-21 15:23 | NUR ---
I was informed by the [employer] that the pt was having decreased urine output. She scanned the pt for greather than 785. The charge nurse attempted to have the pt void and he produced about 50 ml. I scanned the pt right after he voided and it states greater than [address] Farmer was called and notified to the pt's status and she ordered a stright cath in and out. The pt was cathed for 1025 ml of yellow urine. The pt is unable to tell me if he feels any different or not. Sat now on 3l via oxymask is 96% and he denies any other problems at this time.
--- NOTE | 2018-05-21 16:08 | NUR ---
TOOK THE PATIENT ON A WALK PER NURSES REQUEST, PATIENT TOLERATED THE WALK, WELL. PATEINT HAD TO STOP ONCE WHEN WE FIRST STARTED THE WALK, AND BY THE END THE PATEINT WALKED ALL THE WAY BACK TO THE ROOM WITHOUT STOPPING, THIS WAS A BIG ACHIEVMENT FOR THE PATIENT
--- NOTE | 2018-05-21 17:32 | NUR ---
Pt helped up to his chair for dinner.
--- NOTE | 2018-05-21 17:36 | NUR ---
Pt states he has knee pain rated at a 7/10 with movement and he denies any at rest.
--- NOTE | 2018-05-21 20:00 | NUR ---
PT COOPERATIVW WITH ASSESSMENT, IN BED OXYMASK 3l NC IN PLKACE, NO C/O PAIN OR RESP DISTRESS PRESENT OR STATED.
--- NOTE | 2018-05-22 | NUR ---
Resting, eyes closed. Oxymask at 5L in place. pt on swing bed. call light and fluids at bedside
--- NOTE | 2018-05-22 02:10 | NUR ---
OXYMASK IN PLACE, NON RESP DISTRESS, RESTING, CALL LIGHT AT BEDSIDE,
--- NOTE | 2018-05-22 05:17 | NUR ---
PT CONTINUES ON SWING BED STATUS. HAS SLEPT THIS SHIFT. O2 3L OXYMASK, NO C/O SOB. USES CALL LIGHT APPROPRIATELY. VOIDED 100CC AT BEGINING OF SHIFT. TOLERATING FLUIDS WELL, LIQUIDS AND CALL LIGHT AT BEDSIDE. WILL REASSESS UO BEFORE END OF SHIFT WHEN PT WAKES UP PER HIS REQUEST
--- NOTE | 2018-05-22 06:08 | NUR ---
medicated with zofran sl per c/o feeling lightheadness and nauseated. Voided 400cc dark yellow, strong smelling urine. used urine. attends in place.
--- NOTE | 2018-05-22 07:04 | NUR ---
RECIEVED BEDSIDE REPORT FROM LYLA LOPEZ. PT AWAKE, SON AT BEDSIDE. HAS OXYMASK ON AT 3L. SAT 93%. PERSONAL SUPPLIES AND CALL LIGHT IN REACH.
--- NOTE | 2018-05-22 07:48 | NUR ---
PATIENT IN BED RESTING, FAMILY IN ROOM. WARM WASHCLOTH GIVEN. CALL LIGHT IN REACH. NO FURTHER NEEDS AT THIS TIME.
--- NOTE | 2018-05-22 08:28 | NUR ---
PATIENT UP TO CHAIR FOR BREAKFAST, 1PA FWW. FAMILY IN ROOM. CALL LIGHT IN REACH. NO FURTHER NEEDS AT THIS TIME.
--- NOTE | 2018-05-22 09:16 | NUR ---
PT SITTING UP IN RECLINER, VISITING WITH HIS SONS AND . JUST FINISHED BREATHING TREATMENT. OCCASIONAL COUGH. PT USED INSENTIVE SPIROMETER AND ACAPELLA. PERSONAL SUPPLIES AND CALL LIGHT IN REACH.
--- NOTE | 2018-05-22 10:23 | NUR ---
PATIENT UP WALKING WITH PT. PATIENT NOW IN CHAIR, IN ROOM. LINENS CHANGED. CALL LIGHT IN REACH. NO FURTHER NEEDS AT THIS TIME.
--- NOTE | 2018-05-22 13:28 | NUR ---
[place]. HAS PT BUSY THIS AM. VISITED AND GAVE ENCOURAGEMENT TO PT HE WAS IN HALLWAY EXERCISING. PT IS WORKING HARD, FOCUSED. HAD TO TAKE A MOMENT TO GET O2 SATS BACK UP. AND SON IN RM. WILL CONTINUE TO FOLLOW NEEDED
--- NOTE | 2018-05-22 13:44 | NUR ---
PATIENT SITTING IN CHAIR WATCHING TV, BEDSIDE. CALL LIGHT IN REACH. NO FURTHER NEEDS AT THIS TIME.
--- NOTE | 2018-05-22 16:21 | NUR ---
PT UP IN RECLINER, TO BATHROOM, VOIDED SMALL AMOUNT OF URINE IN TOILET, THEN TO BED WITH 1 PERSON ASSIST WITH FWW.
--- NOTE | 2018-05-22 16:38 | NUR ---
PT HAD VOIDED URINE IN TOILET X 2 THIS SHIFT, VOIDED ANOTHER TIME IN TOILET, VERY SMALL AMOUNT, PT REPORTED THAT HE FELT LIKE HE NEEDED TO VOID BUT WAS UNABLE TO. BLADDER SCAN DONE, SHOWED [address] RIVERA VIA TELEPHONE, RECIEVED TORB TO PLACE MERINO CATHETER. DR. RIVERA STATED THAT HE IS GOING TO PLACE FURTHER ORDERS.
--- NOTE | 2018-05-22 17:13 | NUR ---
PLACED 16 FR MERINO CATHETER USING STERILE TECHNIQUE, PT TOLERATED WELL. DRAINING CLEAR YELLOW URINE.
--- NOTE | 2018-05-22 17:56 | NUR ---
PATIENT IN BED WATCHING TV. FRESH WATER GIVEN. CALL LIGHT IN REACH. NO FURTHER NEEDS AT THIS TIME.
--- NOTE | 2018-05-22 20:06 | NUR ---
RECEIVED REPORT FROM DAY SHIFT RN. PATIENT IS RESTING IN BED. PATIENT DENIES ANY NEEDS. CALL LIGHT IN REACH.
--- NOTE | 2018-05-22 21:50 | NUR ---
PATIENT ASSESMENT COMPLETED. PATIENT IS RESTING IN BED. PATIENT IS ON 3L VIA NC. CPOX IN PLACE. PATIENT REPOSITIONED IN BED. PATIENT DENIES ANY SOB. PATIENTS VITALS TAKEN AND RECORDED. PATIENT DENIES ANY SOB. PATIENT COMPLAINS OF PAIN IN HIS KNEES BILAT. PATIENT GIVEN PRN CREAM ON HIS KNEES PER ORDER BILAT. PATIENT DENIES ANY FURTHER NEEDS. CALL LIGHT IN REACH.
--- NOTE | 2018-05-22 23:54 | NUR ---
PATIENT IS RESTING IN BED WITH EYES CLOSED. CPOX WNL. PATIENT REMAINS ON 3L VIA NC. CALL LIGHT IN REACH.
--- NOTE | 2018-05-23 02:30 | NUR ---
PATIENT IS RESTING IN BED WITH EYES CLOSED. CPOX WNL. CALL LIGHT IN REACH.
--- NOTE | 2018-05-23 03:36 | NUR ---
PATIENT IS RESTING IN BED WITH EYES CLOSED. CPOX READINGS WNL. CALL LIGHT IN REACH.
--- NOTE | 2018-05-23 05:01 | NUR ---
PATIENT RESTED WELL THROUGHOUT THE SHIFT. PATIENT IS ON A CRADIAC DIET, NO COMPLAINTS OF NAUSEA. PATIENT HAS NO IV. PATIENT IS ON 3L VIA NC. PATIENT IS A 1PA W/FWW. CPOX IN USE. PATIENT IS FORGETFUL AT TIMES, BUT USES CALL LIGHT APPROPRIATELY. PATIENT HAS MERINO IN PLACE AND IS A DW. PATIENT HAS EDEMA NOTED IN ASSESMENTS.
--- NOTE | 2018-05-23 06:26 | NUR ---
PATIENTS MERINO EMPTIED. PATIENTS DW TAKEN AND RECORDED. PATIENT IS BACK IN BED RESTING. PATIENT REMAINS ON 3L VIA NC. PATIENT DENIES ANY SOB. NO NEEDS NOTED. CALL LIGHT IN REACH.
--- NOTE | 2018-05-23 07:10 | NUR ---
RECIEVED BEDSIDE REPORT FROM LYLA CHAVES. PT IN BED, AWAKE. PERSONAL SUPPLIES AND CALL LIGHT IN REACH.
--- NOTE | 2018-05-23 08:38 | NUR ---
GOT PT UP TO CHAIR FOR BREAKFAST. FAMILY IN ROOM. CALL LIGHT IN PLACE
--- NOTE | 2018-05-23 09:49 | NUR ---
PT SITTING UP IN RECLINER. TOOK AM MEDICATIONS. FRIEND AT SIDE. PERSONAL SUPPLIES AND CALL LIGHT IN REACH.
--- NOTE | 2018-05-23 09:58 | NUR ---
PATIENT IN CHAIR, FAMILY IN ROOM. CALL LIGHT IN REACH. NO FURTHER NEEDS AT THIS TIME.
--- NOTE | 2018-05-23 12:37 | NUR ---
PT SITTING UP IN RECLINER, READING A BOOK. PROVIDED PT WITH A WARM BLANKET PER HIS REQUEST. PT DENIED OTHER NEEDS. PT ATE 90% OF LUNCH, TOLERATED WELL. PERSONAL SUPPLIES AND CALL LIGHT IN REACH.
--- NOTE | 2018-05-23 13:13 | NUR ---
PATIENT UP TO SHOWER AND BACK TO CHAIR, 1PA FWW. LINENS CHAGNED. MIQUEL CARE, CATH CARE, SKIN CARE DONE. NEW DEPENDS AND GOWN PROVIDED. PATIENT MOSTLY INDEPENDENT IN SHOWER. FRESH WATER GIVEN. CALL LIGHT IN REACH. NO FURTHER NEEDS AT THIS TIME.
--- NOTE | 2018-05-23 14:09 | NUR ---
PT SITTING UP IN RECLINER, TALKING WITH FAMILY. DENIES NEEDS. IS ON 1L O2 VIA NC, OXYGEN SATURATION LEVEL 96%. PERSONAL SUPPLIES AND CALL LIGHT IN REACH.
--- NOTE | 2018-05-23 16:51 | NUR ---
PT UP WITH 1 PERSON ASSIST WITH FWW. MERINO CATHETER IN PLACE, DRAINING CLEAR YELLOW URINE. PT HAS HAD NO C/O PAIN. OXYGEN TITRATED FROM 3L VIA NC TO 1L VIA NC. PT UP IN RECLINER MOST OF TODAY. WORKED WITH PHYSICAL THERAPY. READ A BOOK, VISITED WITH FAMILY. TOLERATING DIET WELL.
--- NOTE | 2018-05-23 18:07 | NUR ---
PT SITTING UP IN RECLINER. TOLERATED DINNER WELL. IS ON RA, SAT 92%. PERSONAL SUPPLIES AND CALL LIGHT IN REACH.
--- NOTE | 2018-05-23 18:10 | NUR ---
PATIENT UP FROM CHAIR TO BED, 1PA FWW. FRESH WATER GIVEN. CALL LIGHT IN REACH. NO FURTHER NEEDS AT THIS TIME.
--- NOTE | 2018-05-23 20:34 | NUR ---
PATIENT HAS DISCOMFORT IN HIS KNEES AND VOLTAREN CREAM APPLIED AND ASSESSMENT DONE. PATIENT CURRENTLY GETTING A BREATHING TREATMENT.
--- NOTE | 2018-05-23 22:30 | NUR ---
PATIENT RESTING QUIETLY, EYES CLOSED, ON 2L/NC, RESPIRATIONS REGULAR AND EVEN AT A RATE OF 16. SATS 93% AND HR=70.
--- NOTE | 2018-05-24 00:08 | NUR ---
PATIENT HAD PULLED OFF HIS 1L/NC AND WAS SATING AT 84%. O2 PLACED BACK ON AND SATS BACK TO 93%. PATIENT HAVING NO PAIN AND GOING BACK TO SLEEP.
--- NOTE | 2018-05-24 02:15 | NUR ---
PATIENT RESTING QUIETLY SUPINE, SATS 91% ON 1L/NC AND HEART RATE 68, RESPIRATIONS 16.
--- NOTE | 2018-05-24 04:00 | NUR ---
PATIENT LAYING ON HIS LEFT SIDE, REMAINS ON 1L/NC. SATS AT 92%. HR=72.
--- NOTE | 2018-05-24 05:34 | NUR ---
PATIENT HAS RESTED WELL MOST OF THE NIGHT. REMAINS ON 1L/NC. HAVE NOT BEEN ABLE TO WEEN THE PATIENT OFF THE O2. PATIENT'S SATS DROP TO 85% OFF O2. SATS IN THE 90'S ON 1 LITER O2 AND HR 60'S-70'S.
--- NOTE | 2018-05-24 07:22 | NUR ---
BEDSIDE REPORT RECIEVED FROM LYLA HOUSER. PT IN BED, ASSISTED FROM BED TO RECLINER WITH FWW WITH 1 PERSON ASSIST. PT ON 1L O2, ATTEMPTED TO TITRATE TO RA, OXYGEN SATURATION DROPPED TO 88%. PLACED PT BACK ON 1L O2 VIA NC, SATURATION UP TO 91%. PERSONAL SUPPLIES AND CALL LIGHT IN REACH.
--- NOTE | 2018-05-24 09:35 | NUR ---
PT IN BED. ENCOUARGED IS, CPT USE. ENCOURAGED DEEP BREATH AND COUGH. PT REPORTED 1/10 PAIN TO KNEES, DECLINED TOPICAL ANALGESIC PRN AT THIS TIME. PERSONAL SUPPLIES AND CALL LIGHT IN REACH.
--- NOTE | 2018-05-24 11:37 | NUR ---
PT IN BED. ENCOURAGED PT TO GET UP TO CHAIR. PT STATED THAT HE WOULD GET UP TO CHAIR ONCE LUNCH ARRIVES, AGREED TO CALL FOR ASSISTANCE WITH TRANSFER TO CHAIR WHEN LUNCH IS DELIVERED. PT ON RA, JUST RECIEVED [facility] [place], SAT 94%. PERSONAL SUPPLIES AND CALL LIGHT IN REACH. PT'S AT BEDSIDE.
--- NOTE | 2018-05-24 13:50 | NUR ---
PT IN BED RESTING WITH EYES CLOSED. PERSONAL SUPPLIES AND CALL LIGHT IN REACH.
--- NOTE | 2018-05-24 14:00 | NUR ---
PT IN BED, ALERT, ORIENTED AND AT . HE MENTIONED THAT HE WANTED THE VENT IN HIS RM. PT FEELS IT BLOWS COLD AIR. I TURNED UP THE TEMP IN HIS RM, PT THANKED ME. HAD PLEASANT VISIT, EXTENDED A BLESSING. SHARED WITH HIS RN ABOUT HIS CHILLS. WILL FOLLOW NEEDED
--- NOTE | 2018-05-24 15:20 | NUR ---
PT IN BED. C/O FEELING "BLOATED". OFFERED MILK OF MAGNESIA, PT STATED THAT HE DOES NOT WANT TO TRY THAT NOW, BUT MAY LATER. PT ON RA, SAT 93%. AT BEDSIDE.
--- NOTE | 2018-05-24 15:47 | NUR ---
GAVE PT PRN MALOX AND MILK OF MAGNESIA FOR C/O FEELING "BLOATED", AND FEELING OF INDIGESTION.
--- NOTE | 2018-05-24 16:40 | NUR ---
PT UP TO FWW WITH 1 PERSON ASSIST. UP IN RECLINER FOR MEALS. LUNGS CTA, DIMINISHED IN BASES. MERINO CATHETER IN PLACE, DRAINING CLEAR YELLOW URINE. ON 1L O2 VIA NC THIS AM, NOW ON RA.
--- NOTE | 2018-05-24 19:14 | NUR ---
PATIENT REFUSED SHOWER SAID HE MIGHT TAKE ONE TOMORROW.
--- NOTE | 2018-05-24 19:45 | NUR ---
Patient was a wake transfered patient back to bed from bathroom. 1pa w 4ww. fresh water given no other needs at this time. call light in reach.
--- NOTE | 2018-05-24 20:29 | NUR ---
PATIENT RESTING QUIETLY ON 1L/NC. WATCHING TV AND COMFORTABLE AT THIS TIME.
--- NOTE | 2018-05-24 22:50 | NUR ---
PATIENT RESTING QUIETLY ON 1L/NC. SATS 92% AND HR=68.
--- NOTE | 2018-05-25 00:05 | NUR ---
PATIENT'S SATS ARE 93% WITH A HEART RATE OF 66 ON 1L/NC. EYES CLOSED RESTING QUIETLY SUPINE. CALL LIGHT IN REACH.
--- NOTE | 2018-05-25 03:55 | NUR ---
PATIENT RESTING ON HIS RIGHT SIDE, REMAINS ON 1L/NC. SATS 92% AND HR=68.
--- NOTE | 2018-05-25 07:05 | NUR ---
HAD A DISCUSSION WITH PTS SON LAW TELLEZ REGARDING THE PLAN GOING FORWARD FOR HIS CARE. THEY ARE CONCERNED THAT HE IS GOING TO NEED LONGER CARE THAN WE CAN PROVIDE. HE HAS A PHONE CONFERENCE WITH A FACILITY IN [place] (WHERE THERE ARE MORE FAMILY MEMBERS) FOR AN ASSISTED LIVING PLACE WITH THEM TODAY. HE WILL LET ME KNOW ABOUT THIS IN THE INTERUM. HE IS CONCERNED THAT HE MAY NEED CARE IN A LOCAL FACILITY PRIOR TO THE ARRANGEMENTS FOR [place] BEING COMPLETE.
--- NOTE | 2018-05-25 07:21 | NUR ---
PT RESTING SUPINE IN BED EYES CLOSED AND RESPIRATIONS EVEN AND UNLABORED. CALL LIGHT AND H2O IN REACH. PT ALERT TO VOICE AND ORIENTED. PT DENIES NEEDS AND IS CURRENTLY SATTING 95% PER CPOX ON 3LPNC. BEDSIDE REPORT RECEIVED FROM LYLA HOUSER.
--- NOTE | 2018-05-25 09:00 | NUR ---
PT RESTING SUPINE IN BED, WATCHING TV. AM MEDS ADMINISTERED AND ASSESSMENT COMPLETED. CALL LIGHT AND H2O IN REACH. NO NEEDS/CONCERNS VOICED.
--- NOTE | 2018-05-25 10:31 | NUR ---
PT RESTING SUPINE IN BED WATCHING TV. PT EDUCATED ON MERINO CATH REMOVAL PROCESS AND AGREES TO REMOVE MERINO AT THIS TIME. 10CC STERILE WATER REMOVED FROM [place] AND MERINO REMOVED WITHOUT DIFFICULTY. PT TOLERATED WELL. CALL LIGHT AND H20 IN REACH. NO NEEDS/CONCERNS VOICED.
--- NOTE | 2018-05-25 14:20 | NUR ---
PATIENT AFTER SHOWER SET UP IN HIS CHAIR FOR LUNCH. NOW HE IS BACK IN BED FAMILY IN ROOM.
--- NOTE | 2018-05-25 14:25 | NUR ---
PT RESTING SUPINE IN BED, DENIES NEEDS/CONCERNS. CALL LIGHT AND H20 IN REACH. PT APPEARS TO BE IN NO ACUTE DISTRESS.
--- NOTE | 2018-05-25 16:33 | NUR ---
Pt sitting up in chair satting 93% on room air and denies sob. PM medication administered see emar. Call light and h20 in reach and pt denies needs/concerns at this time. Family at bedside.
--- NOTE | 2018-05-25 18:33 | NUR ---
NOTIFIED OF PT'S LOW URINE OUTPUT AND BLADDER SCAN AMOUNT OF 295 NO NEW ORDERS AT THIS TIME.
--- NOTE | 2018-05-25 18:47 | NUR ---
ANSWERED CALL LIGHT PATIENT WAS IN BATHROOM. HELPED HIM GO BACK TO BED.
--- NOTE | 2018-05-25 19:19 | NUR ---
PT RESTING IN SEMI FOWLERS POSITION IN BED WATCHING TV. PT REPORTS NAUSEA AND STATES "I HAD THAT ICE CREAM AGAIN, LAST TIME I ATE THE ICE CREAM HERE I HAD NAUSEA THEN TOO.". PTN MANOJ SMALL[place]OD ADMINISTERED, SEE EMAR. PT DENIES FURTHER NEEDS, EMISIS BAG, H2O AND CALL LIGHT IN REACH. PT MAINTAINING O2 SAT AT 95% ON ROOM AIR, HR 67.
--- NOTE | 2018-05-25 20:11 | NUR ---
REPORT RECEIVED, PT RESTING IN BED, NO REQUESTS AT THIS TIME, PT ON RA DURING REPORT HOWEVER PT WAS NOTED TO DESATURATE AFTER FALLING ASLEEP TO THE LOW 80'S, PT PLACED ON 2LNC, TOLERATING WELL. DR. RIVERA TO THE FLOOR, DISCUSSED THE PT'S LOW URINE OUTPUT THAT WAS MENTIONED BY THE DAY SHIFT RN, DR. RIVERA REQUESTED FOR THE PT TO BE BLADDER SCANNED AND IF HIS URINE VOLUME IS [address] ANOTHER MERINO CATHETER.
--- NOTE | 2018-05-25 22:20 | NUR ---
PER LYLA AYALA REQUEST I BLADDER SCANNED PT . INFORMED JAMIE OF HOW MUCH .
--- NOTE | 2018-05-25 22:29 | NUR ---
PT UP TO VOID, PT UNABLE TO VOID, BLADDER SCAN COMPLETE, 469 MLS OF URINE FOUND IN PT'S BLADDER.
--- NOTE | 2018-05-25 23:19 | NUR ---
16 [place] MERINO CATHETER PLACED IN PT PER VERBAL ORDER FROM DR. RIVERA RELATED TO URINARY RETENTION, PT TOLERATED WELL, 450 MLS OF CLEAR YELLOW URINE WAS RECEIVED IMMEDIATELY AFTER MERINO WAS IN PLACE. EDUCATION PROVIDED TO PT, QUESTIONS ANSWERED, NO FURTHER NEEDS AT THIS TIME, CALL LIGHT WITHIN REACH. FALL PRECAUTIONS IN PLACE.
--- NOTE | 2018-05-26 00:38 | NUR ---
PT RESTING IN BED, DENIES NEEDS AT THIS TIME, CALL LIGHT WITHIN REACH, FALL PRECAUTIONS IN PLACE. MERINO CATH DRAINING WNL.
--- NOTE | 2018-05-26 02:50 | NUR ---
PT RESTING IN BED, ON 2LNC, NO C/O SOB/CP, NO REQUESTS AT THIS TIME, CALL LIGHT WITHIN REACH. FALL PRECAUTIONS IN PLACE.
--- NOTE | 2018-05-26 04:30 | NUR ---
PT RESTING IN BED, EYES CLOSED, BREATHS EVEN, UNLABORED, ON 2LNC, O2 SAT 93%, NO REQUESTS AT THIS TIME, CALL LIGHT WITHIN REACH. MERINO CATH DRAINING WNL.
--- NOTE | 2018-05-26 06:23 | NUR ---
PT AOX4 THIS SHIFT, APPROPRIATE, NO C/O PAIN, PT WAS PLACED ON 2LNC WHILE SLEEPING THIS SHIFT DUE TO PT DESATURATING TO LOW 80'S, NO C/O SOB/CP, PT ALSO WAS NOTED TO HAVE RETAINED GREATER THAN 400 MLS OF URINE, PT HAD NOT VOIDED FOR OVER 12 HOURS POST REMOVAL OF MERINO CATHETER AND WAS UNABLE TO VOID ON OWN, PER DR. RIVERA'S ORDER MERINO CATH WAS PLACED DUE TO URINARY RETENTION, PT TOLERATED WELL, QUESTIONS ANSWERED, VSS, PO FLUIDS ENCOURAGED, USES CALL LIGHT APPROPRIATELY, 1 PERSON ASSIST/FWW.
--- NOTE | 2018-05-26 07:10 | NUR ---
Pt resting supine in bed, eyes closed and respirations even and unlabored. Pt appears to be sleeping comfortably in bed satting in low 90's per CPOX on 2lpnc. Call light and h20 in reach. Family at bedside. No needs/concerns voiced.
--- NOTE | 2018-05-26 08:15 | NUR ---
IN TO SEE PATIENT, PT RESTING SUPINE IN BED EYES CLOSED AND RESPIRATIONS EVEN AND UNLABORED. PER PT'S SON PT DID NOT SLEEP WELL LAST NIGHT AND FEELS HE SHOULD SLEEP LONGER. VS'S STABLE ON 2LPNC AND PT APPEARS TO BE VERY SLEEPY SO WILL ALOW PT TO SLEEP LONGER PRIOR TO GETTING HIM UP TO CHAIR FOR BREAKFAST AND FOR AM MED ADMINISTRATION. CALL LIGHT AND H20 IN REACH.
--- NOTE | 2018-05-26 09:23 | NUR ---
Pt resting supine in bed, alert and oriented to voice, am meds administered, assessment completed and pt here to work with patient. Call light and h20 in reach. No needs/concerns voiced.
--- NOTE | 2018-05-26 12:34 | NUR ---
PT RESTING SUPINE IN BED, PT TOLERATED LUNCH WELL EATING 80%. PT DENIES NEEDS/CONCERNS AND APPEARS TO BE IN NO DISTRESS SATTING IN LOW 90'2 ON 2LPNC. FAMILY AT BEDSIDE.
--- NOTE | 2018-05-26 12:50 | NUR ---
ANSWERED CALL LIGHT PATIENT WAS IN THE BATHROOM. HELPED HIM BACK TO BED AND DID MERINO CARE AND MIQUEL CARE.
--- NOTE | 2018-05-26 17:11 | NUR ---
Pt sitting in bed eating dinner in high fowlers position. Pt refuses to get up to chair for dinner. Call light and h20 in reach. Pt denies sob on 1lpnc satting 92% with hr of 72.
--- NOTE | 2018-05-26 18:55 | NUR ---
DR RIVERA NOTIFIED OF PT'S LOW URINE OUTPUT OF 325MLS THIS SHIFT, MD ALSO NOTIFIED OF PT'S INTAKE. WILL CONTINUE TO ENCOURAGE PO FLUIDS PER MD REQUEST. NO OTHER ORDERS AT THIS TIME. PT WAS PROVIDED WITH CRANBERRY JUICE MIXED WITH [employer] [place] PER HIS REQUEST. CALL LIGHT AND H20 IN REACH WELL AND PT DENIES NEEDS/CONCERNS AND AGREES TO INCREASE FLUID INTAKE.
--- NOTE | 2018-05-26 19:30 | NUR ---
REPORT RECEIVED, PT RESTING IN BED, NO NEEDS AT THIS TIME, ON 1LNC, O2 SAT 93%, NO C/O SOB/CP, MERINO CATH DRAINING WNL, CALL LIGHT WITHIN REACH.
--- NOTE | 2018-05-26 21:00 | NUR ---
PT RESTING IN BED, AOX4, DENIES ANY NEEDS AT THIS TIME, ON 1LNC, NO C/O SOB/CP, ASSESSMENT COMPLETE, LS CLEAR, 2+ PITTING EDEMA REMAINS IN BLE, PT DENIES PAIN, DENIES NAUSEA. CALL LIGHT WITHIN REACH.
--- NOTE | 2018-05-26 21:43 | NUR ---
VITALS AND I&OS DONE AND CHARTED. BEDSIDE TABLE AND CALL LIGHT IN REACH. PT NEEDS NOTHING AT THIS TIME. INFORMED HIS RN JAMIE OF LOW OUTPUT FROM PT'S MERINO.
--- NOTE | 2018-05-26 23:23 | NUR ---
PT RESTING IN BED, ON 1LNC, NO C/O SOB/CP AT THIS TIME, PT DENIES ANY NEEDS, CALL LIGHT WITHIN REACH, MERINO CATH DRAINING WNL.
--- NOTE | 2018-05-27 01:46 | NUR ---
PT RESTING IN BED, EYES CLOSED, BREATHS EVEN, UNLABORED, NO REQUESTS AT THIS TIME, CALL LIGHT WITHIN REACH, CPOX ON, O2 SAT > 90%, ON 1LNC, NO C/O SOB/CP.
--- NOTE | 2018-05-27 03:05 | NUR ---
PT NOTED TO HAVE O2 DESATURATE WHILE SLEEPING ON 1LNC, PT C/O SOB, DENIES CP, HOB ELEVATED, O2 TITRATED TO 3LNC, O2 SAT 90%, CDB ENCOURAGED, CPT USED WELL IS, PT'S SOB RESOLVED, STATING "I JUST FEEL OK",NO REQUESTS AT THIS TIME, CALL LIGHT WITHIN REACH.
--- NOTE | 2018-05-27 03:27 | NUR ---
RT CALLED FOR PRN NEB TX, PT RESTING IN BED, ON 2LNC, NO REQUESTS AT THIS TIME. RT IN ROOM.
--- NOTE | 2018-05-27 03:40 | NUR ---
PT RECEIVED BREATHING TX FROM RT, O2 TITRATED TO 2LNC, PT'S O2 SAT 90% OR GREATER, PT DENIES SOB/CP, STATES THAT HE FEELS BETTER, CPT AND IS USED WELL, PT ALSO ENCOURAGED TO CDB AND INCREASE PO FLUIDS. NO REQUESTS AT THIS TIME, CALL LIGHT WITHIN REACH.
--- NOTE | 2018-05-27 05:10 | NUR ---
PT AOX4 THIS SHIFT, APPROPRIATE, MERINO CATH DRAINING WNL, URINE OUTPUT REMAINS LOW, DR. RIVERA AWARE, PO FLUIDS ENCOURAGED, PRN NEB GIVEN X1, IS/CPT USED, CDB ENCOURAGED, PT ON 2LNC WHILE SLEEPING, CPOX ON, 1 PERSON SBA/FWW, VSS, USES CALL LIGHT APPROPRIATELY
--- NOTE | 2018-05-27 07:05 | NUR ---
REPORT RECEIVED FROM LYLA AYALA. PT RESTING ON BACK WITH EYES CLOSED. O2 AT 2L NC IN PLACE. O2 SATURATION AT 91%, HR 61. SON AT BEDSIDE. BED RAILS UP. CALL LIGHT WITHIN REACH. MERINO DRAINING TO GRAVITY.
--- NOTE | 2018-05-27 08:20 | NUR ---
CNAS REPORT TO THIS RN THAT PT IS FEELING NAUSEATED. THIS RN TO BEDSIDE. PT REPORTS [place]. MEDICATION GIVEN. PT ADVISED TO GET UP TO CHAIR. PT REFUSES AT THIS TIME BUT STATES HE WILL "A LITTLE LATER." SON AT BEDSIDE. CALL [facility] WITHIN REACH. O2 AT 91% ON 2L O2.
--- NOTE | 2018-05-27 09:55 | NUR ---
MORNING ASSESSMENT AND MEDICATIONS DUE. THIS RN TO BEDSIDE. PT UP TO CHAIR WITH OCCUPATIONAL THERAPY. PT RELUCTANT TO GET UP STATING HE "JUST WANT TO STAY IN ONE PLACE AND NOT MOVE AROUND." EDUCATION DONE WITH PT REGARDING THE IMPORTANCE OF ACTIVITIES. PT AND FAMILY VERBALIZE UNDERSTANDING. PTS FAMILY REINFORCING TO PT THE IMPORTANCE OF CARES AND AMBULATION. ASSESSMENT DONE. SWELLING NOTED IN BLE. MERINO DRAINING CONCENTRATED URINE. PT AGREES TO SHOWER AFTER BREAKFAST. LINENS CHANGED. MORNING CARE DONE. PT REMAINS ON 2L O2 BY NC, WITH O2 SATURATIONS FORM 90-93%. PT DEMONSTRATES USE OF CPT AND I.S. REACHES 1000ML ON I.S. PT EATING BREAKFAST. PT DENIES NAUSEA AT THIS TIME. NO ADDITIONAL REQUESTS OR COMPLAINTS. CALL LIGHT WITHIN REACH.
--- NOTE | 2018-05-27 10:22 | NUR ---
PATIENT SITTING UP IN CHAIR. IN ROOM. SETS UP BATHROOM FOR SHOWER. LINENS CHANGED. VITAL SIGNS AND I&O DONE. CALL LIGHT WITHIN REACH. NO OTHER NEEDS AT THIS TIME
--- NOTE | 2018-05-27 10:57 | NUR ---
PATIENT SITTING UP IN CHAIR. IN ROOM. PATIENT GOES TO BATHROOM TO TAKE A SHOWER. PATIENT USES A WALKER. ONE PERSON ASSISTING. PATIENT TOOK A SHOWER. ONE PERSON ASSISTING. PATIENT USING A CLEAN GOWN AND SOCKS. PATIENT FEELS A LITTLE DIZZY. THIS PCB DESIGNER CALLS FOR HELP. PATIENT BACKS TO CHAIR. LEVEL OF OXYGEN IS GOOD. RN NOTIFIED. CALL LIGHT WITHIN REACH. NO OTHER NEEDS AT THIS TIME
--- NOTE | 2018-05-27 11:04 | NUR ---
THIS RN TO ROOM TO CHECK ON PT. MAP EDITOR REPORTS PT HAS SMALL "DIZZY" EPISODE AFTER SHOWER. JASON, RN TO ROOM TO HELP. PT TRANSFERED BACK TO CHAIR WITHOUT ISSUE. PT NOW STATES HE IS "FEELING MUCH BETTER." PT DENIES PAIN AND NAUSEA. PT VISITING WITH AND WATCHING TV. NO ADDITIONAL REQUESTS OR COMPLAINTS AT THIS TIME. CALL LIGHT WITHIN REACH.
--- NOTE | 2018-05-27 12:28 | NUR ---
THIS RN TO ROOM TO CHECK ON PT. PT STATES HE IS FEELING "WASHED OUT." PT STATES "OVER ALL I'M GETTING BETTER." PT DENIES PAIN, NAUSEA, AND SOB AT THIS TIME. O2 SATURATION 91% ON 2L O2 BY NC. PT DEMONSTRATES USE OF I.S. AND CPT, REACHING 750 ON I.S. EDUCATION DONE WITH PT REGARDING SITTING UP TO BREATH, PT DECLINES REPOSITIONING. PT HAS MINIMAL APPITITE. ENSURE MILKSHAKE OFFERED, DECLINED AT THIS TIME. PLAN MADE FOR NAP THIS AFTERNOON, ANOTHER WALK, AND THEN POSSIBLY A MILKSHAKE. GAMES OFFERED TO PT. PT DECLINES. PT READING BOOK AND VISITING WITH . NO ADDITIONAL REQUESTS OR COMPLAINTS AT THIS TIME. CALL LIGHT WITHIN REACH.
--- NOTE | 2018-05-27 13:41 | NUR ---
PATIENT SLEEPING IN RECLAINING CHAIR. I&O DONE. LOW OUTPUT. RN NOTIFIED. CALL LIGHT WITHIN REACH. NO OTHER NEEDS AT THIS TIME
--- NOTE | 2018-05-27 14:09 | NUR ---
PT IS RESTING WITH EYES CLOSED IN RECLINER, RESP EVEN AND UNLABORE. CALL LIGHT IN EASY REACH.
--- NOTE | 2018-05-27 14:48 | NUR ---
PATIENT CALLS TO WALK IN THE [place]. PATIENT SITTING UP IN CHAIR. FAMILY IN ROOM. PATIENT WALKS OUTSIDE IN THE [place] HALF LAP. PATIENT USED GATE BELT AND WALKER. TWO PERSON ASSISTING. PATIENT BACKS TO CHAIR. HIS OXYGEN LEVEL WAS IN 82 ON THE MONITOR. RN IN CHARGE NOTIFIED. RN CHECKED THE CPOX AND THEN THE LEVEL OF OXYGEN WHEN UP TO 96. CALL LIGHT WITHIN REACH. NO OTHER NEEDS AT THIS TIME
--- NOTE | 2018-05-27 14:55 | NUR ---
THIS RN TO ROOM TO CHECK ON PT. PT FINISHED WITH NAP. UP TO AMBULATE 1/2 LAP IN [place]. PT BACK TO ROOM AND UP TO CHAIR. PT DENIES PAIN AND NAUSEA. ENSURE MILKSHAKE PROVIDED PER PT REQUEST. PT DEMONSTRATES USE OF I.S. AND CPT, REACHING 750 ON I.S. NO ADDITIONAL REQUESTS OR COMPLAINTS AT THIS TIME. CALL LIGHT WITHIN REACH. FAMILY AT BEDSIDE.
--- NOTE | 2018-05-27 15:03 | NUR ---
MD NOTIFIED THAT PTS URINE OUTPUT IS LOW. NO NEW ORDERS AT THIS TIME. FAMILY UPDATED.
--- NOTE | 2018-05-27 15:51 | NUR ---
PATIENT CALLS TO GO BACK TO BED. PATIENT SITTING UP IN CHAIR. FAMILY IN ROOM. PATIENT WALKS TO BED USING A WALKER. ONE PERSON ASSISTING. CALL LIGHT WITHIN REACH. NO OTHER NEEDS AT THIS TIME
--- NOTE | 2018-05-27 17:15 | NUR ---
THIS RN TO ROOM TO CHECK ON PT. PT RESTING IN BED. DINNER ARRIVED. 1PA, FWW UP TO CHAIR FOR DINNER. PT DENIES PAIN AND NAUSEA. PT CHEERFUL AND TELLING JOKES. PT EXCITED TO EAT DINNER. NO ADDITIONAL REQUESTS OR COMPLAINS. PT FINISHED ALL OF ENSURE MILKSHAKE FROM EARLIER. WATER REFILLED. AT BEDSIDE. CALL LIGHT WITHIN REACH.
--- NOTE | 2018-05-27 17:58 | NUR ---
PATIENT SITTING UP IN CHAIR. IN ROOM. PATIENT ASKS TO GO BACK TO BED. PATIENT WALKS TO BED. PATIENT USES A WALKER. ONE PERSON ASSISTING. I&O DONE. LOW OUTPUT. RN NOTIFED. CALL LIGHT WITHIN REACH. NO OTHER NEEDS AT THIS TIME
--- NOTE | 2018-05-27 18:03 | NUR ---
PT SWING BED FOR DECONDITIONING RELATED TO PNEUMONIA. I.S. AND CPT USE ENCORUAGED. PT CURRENTLY REACHING 750 ON I.S. 1PA, FWW UP TO CHAIR FOR ALL MEALS AND AMBULATION IN [place]. PT MORE ENERGETIC THIS SHIFT AND TOELRATED TWO WALKS, TIME IN CHAIR, AND SHOWER WELL. MERINO CATHETER IN PLACE FOR RETENTION, VOIDING QUANTITY INSUFFICIENT, MD AWARE. PT REMAINS ON 2L O2 BY NC WITH CONTINIOUS PULSE OX IN PLACE. O2 SATURATIONS 90-98 THIS SHIFT. FAMILY AT BEDSIDE FOR MOST OF SHIFT. PT USES CALL LIGHT INCONSISTANTLY.
--- NOTE | 2018-05-27 19:12 | NUR ---
REPORT RECEIVED, PT RESTING IN BED, EYES CLOSED, BREATHS EVEN, UNLABORED, ON 2LNC, NO C/O SOB/CP, ON CPOX, O2 SAT 92%, NO REQUESTS AT THIS TIME, CALL LIGHT WITHIN REACH. FALL PRECAUTIONS IN PLACE. MERINO CATH DRAINING WNL.
--- NOTE | 2018-05-27 20:13 | NUR ---
ASSESSMENT COMPLETE, PT AOX4, APPROPRIATE, PT DENIES ANY PAIN, DENIES SOB/CP, ON 2LNC, O2 SAT 92%, CPOX IN PLACE, LS CLEAR, I.S. AND CPT USED, CDB ENCOURAGED, PO FLUIDS ENCOURAGED, BLE EDEMA 3+ PRESENT, PULSES IN BLE FAINT. PT DENIES ANY NEEDS AT THIS TIME, MERINO CATH DRAINING WNL, CALL LIGHT WITHIN REACH. FALL PRECAUTIONS IN PLACE.
--- NOTE | 2018-05-27 20:18 | NUR ---
VITALS DONE AND CHARTED. HELPED PT TO THE BATHROOM AND BACK TO BED WITH HIS FWW. BEDSIDE TABLE AND CALL LIGHT IN REACH.
--- NOTE | 2018-05-27 21:37 | NUR ---
NEW IV 22G STARTED IN PT'S RIGHT HAND BY NESTOR ARITAEDUCATIONAL ADVISER, DISCUSSED WITH DR. CHRISTENSEN THE PT'S DECREASED URINE OUTPUT, DR. CHRISTENSEN ORDERED IV FLUIDS, SEE EMAR, PT TOLERATED WELL. DR. CHRISTENSEN STATED THAT HE IS AWARE OF THE PT'S LOW URINE OUTPUT AND WILL LOOK AT THE PT'S URINE OUTPUT IN THE AM. PT RESTING IN BED, ON 2LNC, O2 SAT 92%, NO C/O SOB/CP, NO REQUESTS AT THIS TIME, CALL LIGHT WITHIN REACH. IV FLUIDS INFUSING PER EMAR WNL.
--- NOTE | 2018-05-27 21:42 | NUR ---
NOTIFIED PT'S RN OF LOW OUTPUT.
--- NOTE | 2018-05-27 23:43 | NUR ---
PT RESTING IN BED, EYES CLOSED, BREATHS EVEN, UNLABORED, ON 2LNC, O2 SAT > 90%, CPOX ON, IV FLUIDS INFUSING PER EMAR WNL, CALL LIGHT WITHIN REACH.
--- NOTE | 2018-05-28 02:29 | NUR ---
PT RESTING IN BED, EYES CLOSED, BREATHS EVEN, UNLABORED, ON 2LNC, CPOX ON, O2 SAT 92%, NO REQUESTS AT THIS TIME, IV FLUIDS INFUSING PER EMAR WNL, CALL LIGHT WITHIN REACH.
--- NOTE | 2018-05-28 03:40 | NUR ---
NEW BAG OF IV FLUIDS INFUSING PER EMAR WNL, PT AWAKE, NO REQUESTS AT THIS TIME, CALL LIGHT WITHIN REACH. ON 2LNC, NO C/O SOB/CP, O2 SAT 92%, ON CPOX, FALL PRECAUTIONS IN PLACE. MERINO CATH DRAINING WNL.
--- NOTE | 2018-05-28 04:43 | NUR ---
PT AOX4, APPROPRIATE, PT NOTED TO HAVE EVEN FURTHER DECREASED URINE OUTPUT AT BEGINNING OF SHIFT, NEW IV STARTED AND FLUIDS BEGAN PER MD'S ORDER, MD AWARE OF PT'S LOW URINE OUTPUT, MERINO CATH DRAINING WNL, PT IS A 1 PERSON ASSIST/FWW, PO FLUIDS ENCOURAGED, VSS, ON 2LNC, NO C/O SOB/CP, ON CPOX O2 SAT 92%, NO C/O PAIN, IV FLUIDS INFUSING PER EMAR WNL.
--- NOTE | 2018-05-28 07:47 | NUR ---
Pt sleeping at this, respirations are even and non labored. Pt has no notable distress, flacc scale 0/10. Personal supplies and call light within reach. No needs at this time.
--- NOTE | 2018-05-28 08:48 | NUR ---
PATIENT WAS UP IN CHAIR FOR REAKFAST, WEIGHT WAS DONE BY STANDING WEIGHT, 202.7 WAS RESULT WILL RE-WEIGH PATIENT HIS PREVIOUS WEIGHT WAS 212
--- NOTE | 2018-05-28 15:50 | NUR ---
NOTIFIED DR CHRISTENSEN OF URINE OUTPUT. NO NEW ORDERS.
--- NOTE | 2018-05-28 18:00 | NUR ---
PT GIVEN MAALOX FOR INDIGESTION PER HIS REQUEST.
--- NOTE | 2018-05-28 18:15 | NUR ---
PT VOMITED APPROX 200ML CHUNKY/FLUID MIXTURE CONTENT FROM DINNER. OFFERED ANTIEMETIC, PT DECLINED AT THIS TIME. PT CONSUMED LARGE AMOUNT OF FOOD AT DINNER TIME PER HIS REPORT.
--- NOTE | 2018-05-28 18:27 | NUR ---
Dr. Orellana aware of most recent low urine output.
--- NOTE | 2018-05-28 20:08 | NUR ---
REPORT RECEIVED, PT RESTING IN BED READING A BOOK AOX4, PT DENIES ANY NEEDS AT THIS TIME, CALL LIGHT WITHIN REACH. IV FLUIDS INFUSING PER EMAR WNL. FALL PRECAUTIONS IN PLACE.
--- NOTE | 2018-05-28 20:21 | NUR ---
ROUNDED CHARGE. RT IN ROOM ADMINISTERING BREATHING TREATMENT.
--- NOTE | 2018-05-28 20:39 | NUR ---
PT AOX4, APPROPRIATE, RESTING IN BED, NO C/O SOB/CP, PT C/O CONGESTION, ON 2LNC, HUMIDIFICATION ADDED BY RT, NO C/O PAIN, NO C/O NAUSEA, LS CLEAR, LOWER LOBES DIMINISHED BILATERALLY, 3+ PITTING EDEMA REMAINS IN BLE, RIGHT ARM EDEMA/SWELLING REMAINS WELL, IV IN RH IS PATENT, FLUSHING WELL, NO SIGNS OF INFILTRATION, IV FLUIDS INFUSING PER EMAR WNL, PT DENIES ANY NEEDS AT THIS TIME, CALL LIGHT WITHIN REACH. FALL PRECAUTIONS IN PLACE.
--- NOTE | 2018-05-28 22:03 | NUR ---
PT RESTING IN BED, ON 2LNC, NO C/O SOB/CP, CPOX ON, IV FLUIDS INFUSING PER EMAR WNL, MERINO CATH DRAINING WNL, NO REQUESTS AT THIS TIME, CALL LIGHT WITHIN REACH.
--- NOTE | 2018-05-29 00:19 | NUR ---
PT CONTINUES TO C/O NASAL CONGESTION, PT PLACED ON OXY MASK TO ASSIST WITH CONGESTION, PT OFFERED NASAL SPRAY ALTHOUGH PT STATES THAT HE DOES NOT WANT TO USE IT, NO FURTHER REQUESTS AT THIS TIME, IV FLUIDS INFUSING PER EMAR WNL, MERINO CATH DRAINING WNL, CALL LIGHT WITHIN REACH.
--- NOTE | 2018-05-29 02:47 | NUR ---
PT STATES THAT HE CONTINUES TO FEEL CONGESTED, PT ON 2LNC, O2 SAT 94%, ON CPOX, VSS, OXYGEN ON HUMIDIFICATION, PT STATES THAT HE JUST FEELS LIKE HE WOULD LIKE TO TALK WITH HIS , PT CALLED HIS ON THE TELEPHONE AND HER AND THE PT'S SON ARE GOING TO COME AND VISIT WITH THE PT. PT DENIES ANY NEEDS AT THIS TIME, CALL LIGHT WITHIN REACH.
--- NOTE | 2018-05-29 02:50 | NUR ---
PT'S FAMILY TO THE PT'S ROOM, PT AOX4, ON 2LNC, O2 SAT 94%, PT REMAINS TO STATE THAT HE FEELS CONGESTED, ALSO STATES THAT HE FEELS PANICKED, UPDATE PROVIDED TO THE PT'S FAMILY AND QUESTIONS ANSWERED, NO NEEDS AT THIS TIME, CALL LIGHT WITHIN REACH.
--- NOTE | 2018-05-29 06:38 | NUR ---
PT AOX4, FORGETFUL AT TIMES, 1 PERSON SBA/FWW, PT ON 2L VIA OXY MASK DUE TO CONGESTION, PT HAS C/O SOME SOB RELATED TO CONGESTION HOWEVER VSS, ON CPOX, O2 SAT > 92%, RR WNL, PT REFUSING TO USE NASAL SPRAY FOR CONGESTION, PT WAS FEELING EMOTIONAL AND CALLED FAMILY IN TO VISIT WITH HIM, PT HAS BEEN ABLE TO REST MUCH EASIER SINCE FAMILY IS AT BEDSIDE, NO C/O N/V THIS SHIFT, NO EMESIS, IV FLUIDS INFUSING PER EMAR, PT'S URINE OUTPUT HAS PICKED UP THIS SHIFT, VSS.
--- NOTE | 2018-05-29 07:56 | NUR ---
PT AWAKE, ALERT AND ORIENTED X3. ASSISTED PT TO CHAIR FOR BREAKFAST. PT TRANSITIONED TO NC FROM FACE MASK, OXYGEN SAT LEVEL IS 95%. FAMILY AT BEDSIDE. PER FAMILY REPORT PT DID NOT SLEEP WELL. STATES PT CALLED HER IN AT 2AM THIS MORNING, SHE THEN CAME INTO HOSPITAL TO SEE HIM. HE WAS AND STILL SEAMS ANXIOUS, PER . PT DENIES CHEST PAIN AND SOB WITH ME. PT STATES HE DOES HAVE INTERMITTENT ANXIETY. I TOLD PT I WOULD PASS THIS INFORMATION OFF TO PROVIDER. NO NEEDS AT THIS TIME. FAMILY IS AT BEDSIDE. PT IS SITTING UP, RESPIRATIONS EVEN AND NON LABORED. PERSONAL SUPPLIES AND CALL LIGHT WITHIN REACH.
--- NOTE | 2018-05-29 09:37 | NUR ---
PT WORKING [facility] PT AT THIS TIME.
--- NOTE | 2018-05-29 10:40 | NUR ---
PATIENT IN CHAIR WATCHING TV. FRESH WATER GIVEN. PATIENT REFUSED SHOWER. CALL LIGHT IN REACH. NO FURTHER NEEDS AT THIS TIME.
--- NOTE | 2018-05-29 11:03 | NUR ---
PT SLEEPING AT THIS TIME, RESP EVEN AND NON LABORED. PT REMAINS ON 2L OXYGEN PER NC, OXYGEN SAT LEVEL IS 95%. PERSONAL SUPPLIES AND CALL LIGHT WITHIN REACH. NO NEEDS AT THIS TIME.
--- NOTE | 2018-05-29 13:38 | NUR ---
PATIENT IN BED RESTING WITH EYES CLOSED. CALL LIGHT IN REACH. NO FURTHER NEEDS AT THIS TIME.
--- NOTE | 2018-05-29 14:39 | NUR ---
PT ALERT, ORIENTED AND CONCERNED ABOUT DECIONS LOOMING REGARDING HIS FURTHER PLACEMENT. WE DISCUSSED SEVERAL OPTIONS, AND DECIDED THAT WE WILL REFER TO "NURSING HOMES" SNF'S. HE GOT A CHUCKLE BUT BEGAN TO CATCH ON. PT MENTIONED THAT HE ALSO WAS READY, NO MATTER THE OUTCOME. HIS KIDS WERE GROWN, ETERNITY SECURE AND END OF LIFE PLANS IN PLACE-MOSTLY. I OFFERED OUR END OF LIFE PLANNING GUIDE AND HE SAID HE WOULD LIKE ONE WELL GBRIANNA. I EXTENDED A BLESSING, AND PT THANKED ME FOR COMING BY. WILL FOLLOW NEEDED
--- NOTE | 2018-05-29 16:35 | NUR ---
FOYDemetria TELLEZ PHONE # [phone] (1) # [phone] CHRISTENSEN ABOUT THE POSSIBILITY FOR A HOSPITAL BED TO BE OBTAINED. DR CHRISTENSEN DIDN'T SEEM TO FEEL THERE IS A MEDICAL NEED FOR THE PT TO BE IN A HOSPITAL BED. I EXPLAINED THIS TO LAW IN THE PHONE CALL REGARDING THE BED AND A GAIT BELT. I ALSO TALKED WITH [facility] ABOUT A GAIT BELT FOR THE PT. SHE SAID THEY HAVE THEM. TOLD LAW THIS ALSO WAS AVAILABLE AT [facility], HE STATED UNDERSTANDING.
--- NOTE | 2018-05-29 18:25 | NUR ---
PT A&OX3. PT ON 2L NC. IV LR @100ML/HR. TOLERATING DIET. UP IN HALLWAY WITH PT TODAY. 1PA WITH WALKER. TO GO HOME WITH FAMILY TMRW.
--- NOTE | 2018-05-29 18:43 | NUR ---
PATIENT IN BED RESTING WITH EYES CLOSED. CALL LIGHT IN REACH. NO FURTHER NEEDS AT THIS TIME.
--- NOTE | 2018-05-29 18:49 | NUR ---
THIS RN ASSUMING CARE OF PT. REPORTS RECEIVED FROM LYLA BOLTON. THIS RN TO ROOM TO CHECK ON PT. PT RESTING IN BED WITH EYES CLOSED. O2 SATURATION 91% ON 2L O2 BY NC. BED RAILS UP. CALL LIGHT WITHIN REACH. GRINDER MILL OPERATOR TO BEDSIDE FOR VITALS AND I/O'S. CALL LIGHT WITHIN REACH.
--- NOTE | 2018-05-29 19:10 | NUR ---
SHIFT REPORT RECEIVED AT BEDSIDE. PATIENT RESTING IN BED. VISITOR IN ROOM. PATIENT DENIES ANY NEEDS. O2 SAT 94% ON 2L NC.
--- NOTE | 2018-05-29 21:15 | NUR ---
PATIENT RESTING IN BED. DENIES ANY PAIN OR NAUSEA. APPEARS COMFORTABLE. BREATHING SHALLOW, O2 SAT 94% ON 2L NC. LUNG SOUNDS CLEAR. ENCOURAGED COUGH AND DEEP BREATH, CPT/IS USED X5. CMS INTACT, MODERATE EDMEA NOTED. ELEAVTED LOWER EXTREMITITES. PATIENT DENIES ANY NEEDS. BED ALARM ON. CALL LIGHT IN REACH.
--- NOTE | 2018-05-29 22:08 | NUR ---
V/S AND I&O TAKEN AND RECORDED. ICE WATER REFILLED. PATIENT DENIES ANY NEEDS AT THIS TIME. SIDE TABLE AND CALL LIGHT WITHIN REACH.
--- NOTE | 2018-05-29 22:30 | NUR ---
IV FLUIDS REDUCED TO 65ML/HR PER ORDER, SITE WNL.
--- NOTE | 2018-05-30 00:30 | NUR ---
PATIENT REPORTS HEARTBURN, PRN MEDS PROVIDED. REPOSITIONED PATIENT IN BED WITH HOB ELEVATED. PATIENT DENIES FURTHER NEEDS. 2L NC IN PLACE. MERINO DRAINING FREELY.
--- NOTE | 2018-05-30 03:50 | NUR ---
PATIENT REPORTS ONGOING HEARTBURN. REPOSTIONED PATIENT UP RIGHT IN BED WITH HOB ELEVATED. PATIENT DECLINED OFFERS OF CRACKERS OR MILK TO SETTLE HIS STOMACH. PRN MAALOX PREVIOUSLY PROVIDED. PATIENT VERBALIZES HIS FRUSTERATION STATING "WHAT ARE YOU GOING TO DO TO FIX IT, I'M TIRED OF THIS". DISCUSSED OPTIONS TO RELIEF HEARTBURN WITH POSITIONING AND ASSURED PATIENT I WOULD DISCUSS THE PROBLEM WITH DR. CHRISTENSEN. REPORTED CONCERNS TO MORTGAGE PROFESSIONAL.
--- NOTE | 2018-05-30 06:20 | NUR ---
PATIENT REFUSING TO GET UP TO STANDING SCALE FOR DAILY WEIGHT. WILL NOTIFY DAY SHIFT RN.
--- NOTE | 2018-05-30 08:10 | NUR ---
PT IN BED, A&OX3. PT ON 2L MC, SAT LEVEL IS 95%. PT REPORTING INDIGESTION, MAALOX IN USE. HOB ELEVATED. PT DENIES NEEDS. SON AT BEDSIDE. PERSONAL SUPPLIES AND CALL LIGHT WITHIN REACH. NO NEEDS AT THIS TIME.
--- NOTE | 2018-05-30 08:45 | NUR ---
PATIENT SITTING UP IN BED, SON IN ROOM. PATIENT DIDNT WANT BREAKFAST TILL 9. CALL LIGHT IN REACH. NO FURTHER NEEDS AT THIS TIME.
--- NOTE | 2018-05-30 09:55 | NUR ---
ADMIN MAALOX FOR STOMACH INDIGESTION.
--- NOTE | 2018-05-30 09:59 | NUR ---
PATIENT SITTING UP IN BED, SON AND IN ROOM. CALL LIGHT IN REACH. NO FURTHER NEEDS AT THIS TIME.
--- NOTE | 2018-05-30 12:24 | NUR ---
PT REQUESTING AN UNINTERRUPTED NAP THIS AFTERNOON UNTIL 3PM. SIGN PLACED ON DOOR FOR STAFF TO BE NOTIFIED.
--- NOTE | 2018-05-30 13:56 | NUR ---
PT HAS REQUESTED NO VISITORS, WHICH IS POSTED ON HIS DOOR UNTIL LATER TODAY. SONS HAD BEEN BY BUT BOTH LEFT TOGETHER. WILL FOLLOW NEEDED
--- NOTE | 2018-05-30 15:25 | NUR ---
PATIENT IN BED, AT BEDSIDE. FRESH WATER GIVEN. CALL LIGHT IN REACH. NO FURTHER NEEDS AT THIS TIME.
--- NOTE | 2018-05-30 15:38 | NUR ---
PT DECLINED PT THIS AFTERNOON.
--- NOTE | 2018-05-30 17:40 | NUR ---
Pt called staff stated to paper box maker he was having a hard time breathing...In to assess pt at this time. Pt is on 2l 02 per nc, resp 26/min, pt sloutched in bed, repositioned pt straight in the bed. Pt reports he has a small relief with repostion. Dr. Orellana and RT in to see pt. Iv fluids stopped at this time per provider order. Per Dr. Orellana, to follow Chest xray and blood work to be collected.
--- NOTE | 2018-05-30 18:40 | NUR ---
PT SITTING UP IN BED, HOB ELEVATED. PT REPORTS SOB IMPROVING. OXYGEN SATURATION IS 95% ON 2L NC. AT BEDSIDE. PT REMAINS SL.
--- NOTE | 2018-05-30 19:07 | NUR ---
IN ROOM FOR REPORT, PT IS AWAKE IN BED AND IS ALSO IN THE ROOM. HE DENIES NEEDS AT THIS TIME AND STATES SOB HAS IMPROVED. CALL LIGHT IS WITHIN REACH.
--- NOTE | 2018-05-30 20:30 | NUR ---
ADMINSITERED EVENING MEDICATIONS AND COMPLETED ASSESSMENT. PT DENIES PAIN AT THIS TIME. HE REPORTS SOB HAS IMPROVED WELL. PT'S AND SON ARE IN THE ROOM AT THIS TIME. HE HAS A DECREASED APPETITE TODAY. HE DENIES NEEDS AT THIS TIME. CALL LIGHT IS WITHIN REACH.
--- NOTE | 2018-05-30 21:05 | NUR ---
IN ROOM TO ADMINISTER LAST MEDICATION. PT'S FAMILY WAS QUESTIONING WHEN THE DR IS COMING TO TALK ABOUT THE RESULTS OF HIS TEST AND CHEST XRAY. I LET THE FAMILY KNOW THAT I WILL CALL AND ASK THE DR IF HE IS COMING TO SEE THEM.
--- NOTE | 2018-05-30 21:10 | NUR ---
SPOKE WITH DR CHRISTENSEN, HE WILL COME AND TALK TO THE FAMILY.
--- NOTE | 2018-05-30 23:00 | NUR ---
WAS PASSING BY PT'S ROOM AND HEARD CPOX BEEPING. PT WAS ROLLING IN BED GETTING BEDDING CHANGED BY EMEKA ARROYO AND MILES DEVI. HE HAS FRESH BEDDING AND ATTENDS IN PLACE AND NOW THAT HE IS NOT MOVING THE CPOX SENSOR IS READING CORRECTLY. PT DENIES FURTHER NEEDS AT THIS TIME, CALL LIGHT IS WITHIN REACH.
--- NOTE | 2018-05-31 00:45 | NUR ---
2PA W FWW FROM RESTROOM TO BED. PT SOB WITH AMBULATION, SATURATIONS WNL ON CPOX WITH 2L OXYGEN BY NC. CALL LIGHT AND PERSONAL SUPPLIES IN REACH.
--- NOTE | 2018-05-31 01:20 | NUR ---
AROUND 0020 TOOK PATIENT TO THE BATHROOM AND BACK TO BED. 2PA USING WALKER.
--- NOTE | 2018-05-31 01:47 | NUR ---
PT IS RESTING WITH EYES CLOSED, RESPIRATIONS ARE EVEN AND NONLABORED. CALL LIGHT IS WITHIN REACH.
--- NOTE | 2018-05-31 02:01 | NUR ---
PT PULSE OX SOUNDING, PROBE HAD COME OFF FINGER. REPLACED. PT STATED HE WAS DOING OK, AND HAD BEEN SLEEPING.
--- NOTE | 2018-05-31 03:01 | NUR ---
CALL LIGHT ANSWERED, PT C/O HEARTBURN. PRN MEDICATION ADMINISTERED. CRACKERS PROVIDED. PT HOB ELEVATED. PT DENIES ADDITIONAL REQUESTS AT THIS TIME. CALL LIGHT IN REACH. SATURATIONS WNL ON 2L OXYGEN BY NC.
--- NOTE | 2018-05-31 04:05 | NUR ---
PT IS RESTING WITH EYES CLOSED, RESPIRATIONS ARE EVEN AND NONLABORED. CALL LIGHT IS WITHIN REACH.
--- NOTE | 2018-05-31 05:38 | NUR ---
PT HAD A DIFFICULT TIME SLEEPING THROUGH THE NIGHT. HE STATES HE CANNOT RELAX AND GET STARTLED AWAKE AT TIMES AND DOES NOT KNOW WHY. HE WAS GIVEN A DOSE OF LASIX LAST NIGHT AND HAD 1125 OF URINE OUTPUT IN HIS MERINO CATH. HE IS ON 2LNC AND CPOX TO MAINTAIN ABOVE 90% O2 SAT. HE HAD SOB WITH EXERTION WHILE UP TO THE RESTROOM. HE AMBULATES 1PA WITH FWW.
--- NOTE | 2018-05-31 07:36 | NUR ---
UP TO BATHROOM AND ABLE TO DO AM CARES AT SINK, ASSIST WITH TOILETING, ALERT, IN GOOD SPIRITS, SOB WITH EXHERTION, 88% ON ROOM AIR, O2 VIA NASAL CANULA AT 1.5L NOW.CONT. TO HAVE 1+ EDEMA, C/O TIGHTNESS ACROSS ABD ALSO. REPORTS HE DOES NOT HAVE MUCH APPETTE. CALL LIGHT IN EASY REACH. SITTING COMFORTABLY IN RECLINER WATCHING NEWS.
--- NOTE | 2018-05-31 08:26 | NUR ---
PATIENT IN THE CHAIR. WARM WASHCLOTH OFFERED. SHOWER OFFERED. WATER REFRESHED. CALL LIGHT IN REACH. NO FUTHER NEEDS AT THIS TIME.
--- NOTE | 2018-05-31 10:30 | NUR ---
COOPERATIVE AND WORKED WITH PT, FATIGES QUICKLY. IN ROOM. DENIES ANY NEEDS.
[2018-05-31] MEDS ORDERED: FAMOTIDINE20 MG PO (11:46)
[2018-05-31] MEDS ORDERED: AMLODIPINE BESY10 MG PO (11:49)
[2018-05-31] MEDS ORDERED: TAMSULOSIN HCL0.4 MG PO (11:50)
[2018-05-31] MEDS ORDERED: WARFARIN SODIU2.5 MG PO (12:07)
[2018-05-31] MEDS ORDERED: COUMADIN2.5 MG PO (12:08)
--- NOTE | 2018-05-31 12:19 | NUR ---
CALL TO [facility] TO GET PT SET UP WITH PT/OT AND RN. ORDERS, CLINICAL NOTES, AND PT EVALS FAXED TO [facility] AT [facility].
--- NOTE | 2018-05-31 13:00 | NUR ---
PT SITTING IN CHAIR- AT HIS SIDE. HE WELCOMED ME WITH A SMILE AND HIS INFORMED ME THAT HE IS TO BE DC'D TOMORROW. PT WAS ABLE TO EAT SOME BREAKFAST, HIS WAS EXCITED HE. PT STILL ON O2 NC. EXTENDED A BLESSING AND ALSO ENCOURAGED PT TO KEEP WORKING. WILL FOLLOW NEEDED
--- NOTE | 2018-05-31 14:16 | NUR ---
PT STATES HE IS COMFORTABLE, DENIES ANY NEEDS. CALL LIGHT IN EASY REACH.
--- NOTE | 2018-05-31 15:17 | NUR ---
CALL TO [facility] TO LET THEM KNOW THAT RECORDS FOR HOME O2 WILL BE FAXED. ALSO FAXED DISCHARGE SUMMARY TO [facility]. RECIEVED FAX CONFIRMATION FROM [facility] AND FROM [facility].
--- NOTE | 2018-05-31 16:57 | NUR ---
WHILE IN TO SPEAK WITH PT ABOUT CASE MANAGMENT, PT STATES THAT HE IS HAVING A PANIC ATTACK ABOUT HIS FAMILY BEING GONE FOR THE NIGHT. BROUGHT THIS MATTER TO PTS PRIMARY NURSE, SHE WILL FOLLOW UP.
--- NOTE | 2018-05-31 17:53 | NUR ---
FAMILY IN TO VISIT, GETTING HOME READY FOR POSSIBLE DC HM. MOTIVATED AND WORKED WELL WITH PT TODAY, APPETITE BETTER TODAY. HAS HAD SOME ANXIETY THIS AFTERNOON OVER POSSIBLE DC BUT FELT BETTER AFTER TALKING. NO PARTICULAR CONCERNS.
--- NOTE | 2018-05-31 19:00 | NUR ---
PT C/O NAUSEA AFTER EATING [place] JELLO, ZOFRAN GIVEN, WATCHING TV. CALL LIGHT IN EASY REACH.
--- NOTE | 2018-05-31 19:22 | NUR ---
IN ROOM FOR REPORT, PT IS RESTING WITH EYES CLOSED, RR IS EVEN AND NONLABORED ON 2 LNC. CALL LIGHT IS WITHIN REACH.
--- NOTE | 2018-05-31 20:09 | NUR ---
IN ROOM TO ASSESS PT AND ADMINISTER MEDICATIONS. PT REPORT AN UPSET STOMACH AFTER EATING GREEN JELLO EARLIER TONIGHT. HE WAS ALREDY GIVEN ZOFRAN AND ADMINISTERED MAALOX AT THIS TIME. HE DENIES PAIN AND REPORTS HE IS BREATHING WELL. HE DENIES NEEDS AT THIS TIME. CALL LIGHT IS WITHIN REACH.
--- NOTE | 2018-05-31 23:24 | NUR ---
PT IS RESTING WITH EYES CLOSED, RESPIRATIONS ARE EVEN AND NONLABORED. CALL LIGHT IS WITHIN REACH.
--- NOTE | 2018-06-01 01:20 | NUR ---
PT IS RESTING WITH EYES CLOSED, RESPIRATIONS ARE EVEN AND NONLABORED. CALL LIGHT IS WITHIN REACH.
--- NOTE | 2018-06-01 03:20 | NUR ---
PT CALLED FOR ASSISTANCE. SHON ARROYO ASSISTED HIM WITH TURNING THE TV ON SHE REPORTED HE WAS FEELING ANXIOUS. SHE PLACED NEW CPOX PROBE THE OLD ONE CAME OFF. NO FURTHER NEEDS AT THIS TIME.
--- NOTE | 2018-06-01 03:52 | NUR ---
PT IS RESTING WITH EYES CLOSED, RESPIRATIONS ARE EVEN AND NONLABORED ON 2LNC AND CPOX. CALL LIGHT IS CLOSE.
--- NOTE | 2018-06-01 05:17 | NUR ---
REPOSITIONED PT IN BED WITH THE HELP OF SHON ARROYO. PT AWOKE CONFUSED. REORIENTED HIM AND EXPLAINED WHY HE IS HERE. FRESH WATER AT BEDSIDE AND PT DENIES FURTHER NEEDS. CALL LIGHT IS WITHIN REACH.
--- NOTE | 2018-06-01 07:30 | NUR ---
REPORT RECEIVED FROM KALIN RN, PATIENT IS RESTING WITH RAILS UP, FAMILY AND PATIENT DENY QUESTIONS OR CONCERNS. BED IN LOW POSTION AND CALL LIGHT WITHIN REACH.
--- NOTE | 2018-06-01 07:34 | NUR ---
NOTIFIED DR CHRISTENSEN OF PT'S URINE OUTPUT. NO NEW ORDERS RECEIVED.
--- NOTE | 2018-06-01 08:56 | NUR ---
REFERRAL TO [facility] SCANNED TO [facility].
--- NOTE | 2018-06-01 09:01 | NUR ---
OXYGEN ORDER FAXED TO [facility], CALLED IN [facility] TO LET THEM KNOW. FAX CONFIRMATION RECIEVED.
--- NOTE | 2018-06-01 09:08 | NUR ---
DC SUMMARY FAXED TO [facility], CALL TO LET THEM KNOW. FAX CONFIRMATION RECIEVED.
--- NOTE | 2018-06-01 10:31 | NUR ---
PATIENT AND FAMILY GIVEN D/C INSTRUCTIONS, QUESTIONS ANSWERED AND PHARMACY IN TO SPEAK WITH THE FAMILY REGARDING D/C MEDICATIONS. IV DC'D IN THE RIGHT HAND TIP INTACT.
== END 2018-06-01 10:59 | disposition home health service (06) | DRG 193 ==
LOC: MS 17:15
PROVIDERS: ADMIT Internal Medicine
DX: J13 Pneumonia due to Streptococcus pneumoniae (principal); J96.01 Acute respiratory failure with hypoxia; J98.11 Atelectasis; J18.8 Other pneumonia, unspecified organism; I12.9 Hypertensive chronic kidney disease with stage 1 through stage 4 chronic kidney disease, or unspecified chronic kidney disease; N18.3 Chronic kidney disease, stage 3 (moderate); R33.9 Retention of urine, unspecified; K21.9 Gastro-esophageal reflux disease without esophagitis; D63.1 Anemia in chronic kidney disease; I48.2 Chronic atrial fibrillation; F01.50 Vascular dementia, unspecified severity, without behavioral disturbance, psychotic disturbance, mood disturbance, and anxiety; R79.1 Abnormal coagulation profile; Z66 Do not resuscitate; Z79.01 Long term (current) use of anticoagulants; Z79.82 Long term (current) use of aspirin; Z79.899 Other long term (current) drug therapy
CPT/HCPCS: 36415; 71045; 71046; 80048; 80053; 81001; 83735; 83880; 85025; 85610; 94640; 94667; 94668; 94760; 94761; 94762; 97110; 97116; 97162; 97165; 97530; J1940; J7120